=== PATIENT | male | born 1980 | race Caucasian/White ===

== ENCOUNTER 2016-07-17 15:19 | Inpatient (IN) | payer MEDICARE ==
[~2016-07-17] VITALS: Ht 177.8 cm; Wt 99.8 kg
[2016-07-17] MEDS ORDERED: IV NORMAL SALINE 1000ML BAG 1,000 ML IV ONE (16:15)
[2016-07-17] MEDS ORDERED: DIAZEPAM 10 MG/2 ML DISP.SYRIN. IV ONE (16:15)
[2016-07-17] MEDS ORDERED: KETOROLAC 15 MG/ML VIAL. IV ONE (16:15)
[2016-07-17 16:23] LABS: CALCIUM 9.2 mg/dL (8.5-10.1); POTASSIUM 3.9 mmol/L (3.5-5.1)
[2016-07-17 16:26] LABS: BASO % 1 % (0-3); EOS % 2 % (0-3); HEMATOCRIT 40.5 % (39.0-53.0); HEMOGLOBIN 13.5 g/dL (13.0-17.5); LYMPH # 2.1 x10^3/uL (1.0-4.8); LYMPH % 23 % (24-48); MEAN CORPUSCULAR HEMOGLOBIN 29 pg (25-35); MEAN CORPUSCULAR HGB CONC 33 g/dL (31-37); MEAN CORPUSCULAR VOLUME 88 fL (79-100); MONO % 8 % (0-9); NEUT % 66 % (31-73); PLATELET COUNT 180 x10^3/uL (140-400); RED CELL DISTRIBUTION WIDTH 14.3 % (11.5-14.5)
[2016-07-17] MEDS ORDERED: MORPHINE SULFATE 4 MG/ML DISP.SYRIN. IV ONE ×2 (18:00→19:00)
--- NOTE | 2016-07-17 18:35 | PHYS DOC ---
Past Medical History Past Medical History: Anxiety, Other Additional Past Medical Histor: ADHD, bipolar 2 Past Surgical History: Appendectomy, Other Additional Past Surgical Histo: herniax 2 with mesh Alcohol Use: None Drug Use: Marijuana Adult General Chief Complaint Chief Complaint: CHEST WALL PAIN HPI HPI Patient is a 36 year old male who presents after syncopal episode. Patient reports over the past week he has been having some chest pressure. This is worse today. It is accompanied by shortness of breath. He reports today he had 2 episodes today where he became lightheaded and loss consciousness. The second time he fell and injured his L foot. He is also having pain in his lower back. He has not taken anything for symptoms today. No clear inciting or mitigating factors. Review of Systems Review of Systems Constitutional: Syncope x2. Denies fever or chills Eyes: Denies change in visual acuity or eye pain HENT: Denies nasal congestion or sore throat Respiratory: Shortness of breath. Denies cough Cardiovascular: L chest pressure GI: Denies abdominal pain, nausea, vomiting, bloody stools or diarrhea : Denies dysuria or hematuria Musculoskeletal: L foot and low back pain Integument: Denies rash or skin lesions Neurologic: Denies headache, focal weakness or sensory changes Current Medications Current Medications Current Medications Medications (Trade) Dose Ordered Sig/Ryan Start Time Stop Time Status Last Admin Dose Admin Diazepam (Valium) 5 mg 1X ONCE 07/17/16 16:15 07/17/16 16:16 DC 07/17/16 16:09 5 MG Ketorolac Tromethamine 15 mg 15 mg 1X ONCE 07/17/16 16:15 07/17/16 16:16 DC 07/17/16 16:05 15 MG Morphine Sulfate 4 mg 1X ONCE 07/17/16 18:00 07/17/16 18:01 DC 07/17/16 17:48 4 MG Sodium Chloride (Iv Sodium Chloride 0.9% 1000ml Bag) 1,000 ml @ 1,000 mls/hr 1X ONCE 07/17/16 16:15 07/17/16 17:14 DC 07/17/16 16:15 1,000 MLS/HR Allergies Allergies Allergies Coded Allergies Type Severity Reaction Last Updated Verified Penicillins Allergy Intermediate 07/25/15 Yes fluoxetine Allergy Intermediate 07/25/15 Yes promethazine Allergy Intermediate 07/25/15 Yes codeine Adverse Reaction Mild itching 07/25/15 Yes Physical Exam Physical Exam Constitutional: Well developed, well nourished, no acute distress, non-toxic appearance HENT: Normocephalic, atraumatic, bilateral external ears normal Eyes: EOMI, conjunctiva normal, no discharge Neck: Normal range of motion, no stridor; no midline TTP, no stepoff Cardiovascular: Heart rate normal, regular rhythm, no murmur Lungs & Thorax: Coarse breath sounds b/l Abdomen: Bowel sounds normal, soft, non-distended, no TTP Skin: Warm, dry, no erythema, no rash Back: General lumbar tenderness both midline and laterally, no stepoff or deformity noted Extremities: L foot unremarkable compared to R; TTP at base of 5th metatarsal; 2 + DP pulse Neurologic: Alert and oriented X 3, no gross deficits noted Psychological: Anxious Current Patient Data Vital Signs Vital Signs Date Time Temp Pulse Resp B/P Pulse Ox O2 Delivery O2 Flow Rate FiO2 07/17/16 17:48 90 25 108/56 95 07/17/16 15:19 98.8 Room Air 98.8 Lab Values Laboratory Tests Test 07/17/16 15:20 White Blood Count 9.0x10^3/uL (4.0-11.0) Red Blood Count 4.60x10^6/uL (4.30-5.70) Hemoglobin 13.5g/dL (13.0-17.5) Hematocrit 40.5% (39.0-53.0) Mean Corpuscular Volume 88fL (79-100) Mean Corpuscular Hemoglobin 29pg (25-35) Mean Corpuscular Hemoglobin Concent 33g/dL (31-37) Red Cell Distribution Width 14.3% (11.5-14.5) Platelet Count 180x10^3/uL (140-400) Neutrophils (%) (Auto) 66% (31-73) Lymphocytes (%) (Auto) 23% (24-48) L Monocytes (%) (Auto) 8% (0-9) Eosinophils (%) (Auto) 2% (0-3) Basophils (%) (Auto) 1% (0-3) Neutrophils # (Auto) 5.9x10^3uL (1.8-7.7) Lymphocytes # (Auto) 2.1x10^3/uL (1.0-4.8) Monocytes # (Auto) 0.7x10^3/uL (0.0-1.1) Eosinophils # (Auto) 0.1x10^3/uL (0.0-0.7) Basophils # (Auto) 0.0x10^3/uL (0.0-0.2) Sodium Level 143mmol/L (136-145) Potassium Level 3.9mmol/L (3.5-5.1) Chloride Level 106mmol/L (98-107) Carbon Dioxide Level 31mmol/L (21-32) Anion Gap 6 (6-14) Blood Urea Nitrogen 18mg/dL (8-26) Creatinine 1.0mg/dL (0.7-1.3) Estimated GFR (Cockcroft-Gault) 85.0 Glucose Level 134mg/dL (70-99) H Calcium Level 9.2mg/dL (8.5-10.1) Troponin I Quantitative < 0.017ng/mL (0.000-0.055) Laboratory Tests 07/17/16 15:20 Laboratory Tests 07/17/16 15:20 EKG EKG EKG (my read): sinus rhythm, rate 113, LAD, LAFB, nonspecific ST changes Radiology/Procedures Radiology/Procedures CXR (my read): No acute abnormality X-ray L foot: Fracture proximal 5th metatarsal X-ray lumbar spine: No acute abnormality Course & Med Decision Making Course & Med Decision Making Pertinent Labs and Imaging studies reviewed. (See chart for details) Patient is 36-year-old female who presents after reported syncopal episodes. Will check chest x-ray, x-ray lumbar spine, x-ray left foot, EKG, labs to evaluate. Toradol and morphine given for pain. Valium ordered for muscle relaxation as well as anxiety. EKG and imaging results as above. Will splint left foot. Blood work unremarkable. However, given complaint of continued chest discomfort and shortness of breath in addition to reported syncope, we will admit the patient overnight to monitor. Discussed results with patient. Discussed with Dr. Gonzalez, will admit under her care for further evaluation and treatment. Dragon Disclaimer Dragon Disclaimer This electronic medical record was generated, in whole or in part, using a voice recognition dictation system. Departure Departure Impression: Primary Impression: Syncope Additional Impressions: Chest pain SOB (shortness of breath) Metatarsal fracture Disposition: 09 ADMITTED INPATIENT Admitting Physician: Chantel Gonzalez Condition: STABLE Referrals: NO PCP (PCP) Problem Qualifiers JULIOCESAR ZAMORA MD Jul 17, 2016 18:35
[2016-07-17] MEDS ORDERED: ONDANSETRON PF 4 MG/2 ML VIAL. IV PRN ×2 (18:45→19:30)
[2016-07-17] MEDS ORDERED: MORPHINE SULFATE 2 MG/ML DISP.SYRIN. IV PRN (19:15)
--- NOTE | 2016-07-17 19:28 | PDOC1 ---
History and Physical Date of Admission Date of Admission 07/17/16 Identification/Chief Complaint Chief Complaint syncope, chest pain Problems: Source Source: Chart review, Patient History of Present Illness History of Present Illness HPI HPI Patient is a 36 year old male who presents after syncopal episodes 2 times today. Pt is very anxious. He just moved here, no pcp yet, fu with psych for anxiety on xanax. Pt said he had had some chest pain for 1 week. The chest pain comes any times. He was sitting on couch today, stood up, then syncoped falling on the floor for 2 min as per brother, injuried his foot. He woke up fine. Chest pain worse today, worse with deep breath, + tenderness, radiating to left shoulder, + sweating and sob, no N/V. He then walked in the house, 3-4 hours later, syncoped again and hit his lower back. HE has chronic lower back pain. denies alcohol, + marijuana heavy use. Notice pt has multiple left 5th metatarsal fx in the past and this time too. Past Medical History Past Medical History al History: Anxiety, Other Additional Past Medical Histor: ADHD, bipolar 2 Past Surgical History Past Surgical History: Appendectomy, Hernia Repair Family History Family History: No Significant Social History Smoke: <1 pack per day ALCOHOL: social Drugs: Marijuana Current Problem List Problem List Problems Medical Problems: (1) Chest pain Status: Acute (2) Metatarsal fracture Status: Acute (3) SOB (shortness of breath) Status: Acute (4) Syncope Status: Acute Current Medications Current Medications Current Medications Medications (Trade) Dose Ordered Sig/Ryan Start Time Stop Time Status Last Admin Dose Admin Diazepam (Valium) 5 mg 1X ONCE 07/17/16 16:15 07/17/16 16:16 DC 07/17/16 16:09 5 MG Ketorolac Tromethamine 15 mg 15 mg 1X ONCE 07/17/16 16:15 07/17/16 16:16 DC 07/17/16 16:05 15 MG Morphine Sulfate 4 mg 1X ONCE 07/17/16 19:00 07/17/16 19:01 DC 07/17/16 18:52 4 MG Ondansetron HCl (Zofran) 4 mg PRN Q8HRS PRN 07/17/16 18:45 07/18/16 18:44 Oxycodone/ Acetaminophen (Percocet 5/325) 1 tab PRN Q4HRS PRN 07/17/16 19:30 UNV Sodium Chloride (Iv Sodium Chloride 0.9% 1000ml Bag) 1,000 ml @ 1,000 mls/hr 1X ONCE 07/17/16 16:15 07/17/16 17:14 DC 07/17/16 16:15 1,000 MLS/HR Allergies Allergies Allergies Coded Allergies Type Severity Reaction Last Updated Verified Penicillins Allergy Intermediate 07/25/15 Yes fluoxetine Allergy Intermediate 07/25/15 Yes promethazine Allergy Intermediate 07/25/15 Yes codeine Adverse Reaction Mild itching 07/25/15 Yes ROS Review of System CONSTITUTIONAL: No fever or chills EYES: No recent changes SKIN: No rash or itching CARDIOVASCULAR: No chest pain, syncope, palpitations, or edema RESPIRATORY: No SOB or cough GASTROINTESTINAL: No nausea, vomiting or abdominal pain NEUROLOGICAL: No headaches or weakness ENDOCRINE: No cold or heat intolerance GENITOURINARY: No urgency or frequency of urination MUSCULOSKELETAL: No back pain or joint pain LYMPHATICS: No enlarged lymph nodes PSYCHIATRIC: No anxiety or depression Physical Exam Physical Exam GEN.: No apparent distress. Alert and oriented. anxious. HEENT: Head is normocephalic, atraumatic NECK: Supple. LUNGS: decreased bs. HEART: RRR, S1, S2 present. Peripheral pulses intact. + tenderness ABDOMEN: Soft, nontender. Positive bowel sounds. EXTREMITIES: Without any cyanosis. left foot in cast. NEUROLOGIC: Normal speech, normal tone PSYCHIATRIC: Normal affect, normal mood. SKIN: No ulcerations Vitals Vitals Vital Signs Date Time Temp Pulse Resp B/P Pulse Ox O2 Delivery O2 Flow Rate FiO2 07/17/16 18:52 16 96 Room Air 07/17/16 17:48 90 108/56 07/17/16 15:19 98.8 98.8 Labs Labs Laboratory Tests Test 07/17/16 15:20 White Blood Count 9.0x10^3/uL (4.0-11.0) Red Blood Count 4.60x10^6/uL (4.30-5.70) Hemoglobin 13.5g/dL (13.0-17.5) Hematocrit 40.5% (39.0-53.0) Mean Corpuscular Volume 88fL (79-100) Mean Corpuscular Hemoglobin 29pg (25-35) Mean Corpuscular Hemoglobin Concent 33g/dL (31-37) Red Cell Distribution Width 14.3% (11.5-14.5) Platelet Count 180x10^3/uL (140-400) Neutrophils (%) (Auto) 66% (31-73) Lymphocytes (%) (Auto) 23% (24-48) Monocytes (%) (Auto) 8% (0-9) Eosinophils (%) (Auto) 2% (0-3) Basophils (%) (Auto) 1% (0-3) Neutrophils # (Auto) 5.9x10^3uL (1.8-7.7) Lymphocytes # (Auto) 2.1x10^3/uL (1.0-4.8) Monocytes # (Auto) 0.7x10^3/uL (0.0-1.1) Eosinophils # (Auto) 0.1x10^3/uL (0.0-0.7) Basophils # (Auto) 0.0x10^3/uL (0.0-0.2) Sodium Level 143mmol/L (136-145) Potassium Level 3.9mmol/L (3.5-5.1) Chloride Level 106mmol/L (98-107) Carbon Dioxide Level 31mmol/L (21-32) Anion Gap 6 (6-14) Blood Urea Nitrogen 18mg/dL (8-26) Creatinine 1.0mg/dL (0.7-1.3) Estimated GFR (Cockcroft-Gault) 85.0 Glucose Level 134mg/dL (70-99) Calcium Level 9.2mg/dL (8.5-10.1) Troponin I Quantitative < 0.017ng/mL (0.000-0.055) Laboratory Tests Test 07/17/16 15:20 White Blood Count 9.0x10^3/uL (4.0-11.0) Red Blood Count 4.60x10^6/uL (4.30-5.70) Hemoglobin 13.5g/dL (13.0-17.5) Hematocrit 40.5% (39.0-53.0) Mean Corpuscular Volume 88fL (79-100) Mean Corpuscular Hemoglobin 29pg (25-35) Mean Corpuscular Hemoglobin Concent 33g/dL (31-37) Red Cell Distribution Width 14.3% (11.5-14.5) Platelet Count 180x10^3/uL (140-400) Neutrophils (%) (Auto) 66% (31-73) Lymphocytes (%) (Auto) 23% (24-48) Monocytes (%) (Auto) 8% (0-9) Eosinophils (%) (Auto) 2% (0-3) Basophils (%) (Auto) 1% (0-3) Neutrophils # (Auto) 5.9x10^3uL (1.8-7.7) Lymphocytes # (Auto) 2.1x10^3/uL (1.0-4.8) Monocytes # (Auto) 0.7x10^3/uL (0.0-1.1) Eosinophils # (Auto) 0.1x10^3/uL (0.0-0.7) Basophils # (Auto) 0.0x10^3/uL (0.0-0.2) Sodium Level 143mmol/L (136-145) Potassium Level 3.9mmol/L (3.5-5.1) Chloride Level 106mmol/L (98-107) Carbon Dioxide Level 31mmol/L (21-32) Anion Gap 6 (6-14) Blood Urea Nitrogen 18mg/dL (8-26) Creatinine 1.0mg/dL (0.7-1.3) Estimated GFR (Cockcroft-Gault) 85.0 Glucose Level 134mg/dL (70-99) Calcium Level 9.2mg/dL (8.5-10.1) Troponin I Quantitative < 0.017ng/mL (0.000-0.055) VTE Prophylaxis Ordered VTE Prophylaxis Devices: Yes VTE Pharmacological Prophylaxi: Yes Assessment/Plan Assessment/Plan 1 . atypical chest pain, 2/2 muscular pain likely 2. syncope, 2/2 drug use? 3. anxiety 4. bipolar 2? 5. ADHD PLAN: 1. CARD, ORTHO, neuro consult 2. cycle ce 3. pain control ptot drug tox xanax prn dvt ppx HERO AYALA MD Jul 17, 2016 19:28
[2016-07-17 19:30] VITALS: BP 123/72
[2016-07-17] MEDS ORDERED: ALPRAZOLAM 0.25 MG TABLET PO PRN (19:30)
[2016-07-17] MEDS ORDERED: LORAZEPAM 2 MG/ML VIAL IV PRN (19:30)
[2016-07-17] MEDS ORDERED: ACETAMINOPHEN 325 MG TABLET. PO PRN (19:30)
[2016-07-17] MEDS: HYDROMORPHONE 2 MG/ML VIAL. IV PRN (20:12)
[2016-07-17] MEDS: OXYCODONE/APAP 5/325 TABLET. PO PRN (20:46)
[2016-07-17] MEDS ORDERED: ENOXAPARIN 40 MG/0.4 ML DISP.SYRIN. SQ SCH (21:00)
[2016-07-17 23:00] VITALS: BP 150/89
[2016-07-18] MEDS: HYDROMORPHONE 2 MG/ML VIAL. IV PRN ×2 (01:02→06:19)
[2016-07-18] MEDS ORDERED: ALBUTEROL SULFATE 2.5 MG/3 ML NEBU. NEB PRN (01:45)
[2016-07-18 03:31] VITALS: BP 122/78
[2016-07-18] MEDS: OXYCODONE/APAP 5/325 TABLET. PO PRN (05:17)
--- NOTE | 2016-07-18 06:33 | ACF ---
Admission Forms Criteria SYNCOPE Clinical Indications for Admission to Inpatient Care ( Place 'X' for any and all applicable criteria): Admission is indicated for syncope and ANY ONE of the following (1)(2)(3)(4)(5) (6)(7) : [X]I. Inpatient admission required rather than observation care (Also use Syncope: Observation Care Criteria as appropriate) because of ANY ONE of the following: [ ]a) Hemodynamic instability that is severe or persistent [ ]b) Cardiac arrhythmias of immediate concern identified or strongly suspected (eg, needs electrophysiologic study) [ ]c) Acute coronary syndrome identified (Also use Myocardial Infarction or Angina Criteria form ) [ ]d) Structural cardiac disorder (eg, aortic stenosis) suspected as cause that requires immediate correction [ ]e) Respiratory symptoms (eg, dyspnea, tachypnea) that are severe or persistent [ ]f) Neurologic signs or symptoms that are severe or persistent ( eg, stroke, seizures, altered mental status) [ ]g) Severe electrolyte abnormalities requiring inpatient care [ ]h) Supplemental oxygen or respiratory treatment for over 24 hrs that are performable only in acute inpatient setting [ ]i) IV fluid to replace significant ongoing (eg, for over 24 hrs ) losses (>3 L/m2 per day) [ ]j) Continuous intravenous infusion of anticoagulation, platelet inhibitor, vasoactive, or antiarrhythmic medication(15)(16) [ ]k) Pulmonary artery catheter monitoring [ ]l) Temporary pacemaker placement(17) [ ]m) Emergent cardioversion(18) [X]n) Other conditions, treatment or monitoring requiring inpatient admission [ ]II. Suspicion of imminently dangerous cause (eg, rare causes like pericardial tamponade, pulmonary embolism) [ ]III. Syncope causing severe injury requiring hospitalization Extended stay beyond goal length of stay may be needed for(28) [ ]a) Dangerous arrhythmia(15)(23)(27)(29) [ ]b) Myocardial ischemia [ ]c) Seizure disorder [ ]d) Syncope-related injuries The original [employer] content created by [employer] has been revised. The portions of the content which have been revised are identified through the use of italic text or in bold, and [employer] has neither reviewed nor approved the modified material. All other unmodified content is copyright [employer]. Please see references footnoted in the original [facility] edition 2016 Admission Criteria Met?: Yes WILVER MANCERA Jul 18, 2016 06:32
[2016-07-18 06:45] LABS: BASO # 0.1 x10^3/uL (0.0-0.2); BASO % 1 % (0-3); EOS % 2 % (0-3); HEMATOCRIT 40.2 % (39.0-53.0); HEMOGLOBIN 13.3 g/dL (13.0-17.5); LYMPH % 33 % (24-48); MEAN CORPUSCULAR HEMOGLOBIN 29 pg (25-35); MEAN CORPUSCULAR HGB CONC 33 g/dL (31-37); MEAN CORPUSCULAR VOLUME 88 fL (79-100); MONO % 10 % (0-9); NEUT % 55 % (31-73); PLATELET COUNT 190 x10^3/uL (140-400); RED BLOOD COUNT 4.56 x10^6/uL (4.30-5.70); RED CELL DISTRIBUTION WIDTH 14.7 % (11.5-14.5); WHITE BLOOD COUNT 9.1 x10^3/uL (4.0-11.0)
[2016-07-18 07:08] LABS: CALCIUM 8.8 mg/dL (8.5-10.1); CREATININE 1.2 mg/dL (0.7-1.3); GFR 68.9; POTASSIUM 4.1 mmol/L (3.5-5.1)
[2016-07-18 07:25] VITALS: BP 143/69
[2016-07-18] MEDS ORDERED: CARISOPRODOL 350 MG TABLET PO PRN (09:30)
[2016-07-18] MEDS ORDERED: OXYCODONE/APAP 10/325 TABLET. PO PRN (09:30)
[2016-07-18 10:20] VITALS: BP 148/73
--- NOTE | 2016-07-18 11:03 | RAD ---
EXAM: Lumbar spine 2 or 3 views. HISTORY: Syncope, low back pain COMPARISON: 08/08/2009. FINDINGS: There is a minimal levocurvature. Vertebral body heights are maintained, and no fractures are identified. Intervertebral disc heights are maintained. Stool throughout the colon is consistent with constipation. There are postsurgical changes in the left upper quadrant. IMPRESSION: 1. No fracture or malalignment. 2. Correlate for constipation.
--- NOTE | 2016-07-18 11:05 | RAD ---
EXAM: Left foot 3 views. HISTORY: Fall with left foot injury. COMPARISON: 08/21/2015. FINDINGS: There are fracture fragments at the base of the fifth metatarsal. There is associated periosteal reaction, consistent with a subacute or acute on subacute injury. There also appears to be some ossification at the insertion of the peroneal tendons. There is mild hallux valgus with mild first metatarsophalangeal osteoarthritis. IMPRESSION: 1. Avulsion fractures at the base of the fifth metatarsal may be acute on subacute. Some fragments remain a completely unified. 2. Mild hallux valgus with mild first metatarsophalangeal osteoarthritis.
--- NOTE | 2016-07-18 11:08 | RAD ---
EXAM: Chest 2 views. HISTORY: Chest pain, fall, syncope. COMPARISON: None. FINDINGS: Frontal and lateral views of the chest are obtained. There are no confluent infiltrates. There is mild left basilar atelectasis. There is no pneumothorax or pleural effusion. The heart is not enlarged. IMPRESSION: 1. No confluent infiltrates.
[2016-07-18 11:22] LABS: BARBITURATES NEG (NEG); BENZODIAZEPINES POS (NEG); CANNABINOIDS POS (NEG); COCAINE NEG (NEG); METHADONE NEG (NEG); OPIATES POS (NEG); PHENCYCLIDINE NEG (NEG)
[2016-07-18 11:23] LABS: ETHANOL, URINE NEG (NEG)
--- NOTE | 2016-07-18 12:39 | PDOC3 ---
Discharge Summary [facility] Date of Admission: Jul 17, 2016 Discharge Date: Jul 18, 2016 Admitting Diagnosis 1 . atypical chest pain, 2/2 muscular pain likely 2. syncope, 2/2 drug use likely,with marijuana, benza which may cause toxic encephalopathy 3. anxiety 4. bipolar 2? 5. ADHD 6. left 5th metatarsal fx, acute /subacute, had it before too 7. COPD with smoking Problems: Final Diagnosis Problems Medical Problems: (1) Chest pain Status: Acute (2) Metatarsal fracture Status: Acute (3) SOB (shortness of breath) Status: Acute (4) Syncope Status: Acute CONSULTS card neuro ortho Brief Hospital Course Patient is a 36 year old male who presents after syncopal episodes 2 times today. Pt is very anxious. He just moved here, no pcp yet, fu with psych for anxiety on xanax. Pt said he had had some chest pain for 1 week. The chest pain comes any times. He was sitting on couch today, stood up, then syncoped falling on the floor for 2 min as per brother, injuried his foot. He woke up fine. Chest pain worse today, worse with deep breath, + tenderness, radiating to left shoulder, + sweating and sob, no N/V. He then walked in the house, 3-4 hours later, syncoped again and hit his lower back. HE has chronic lower back pain. denies alcohol, + marijuana heavy use. Notice pt has multiple left 5th metatarsal fx in the past and this time too. Pt still anxious, all CE neg. [facility] and i refused him since he can only go with some staff ( he might wants to smoke as per nurses , since he sneaked out many times last night). dr. Lubin told me no foot sx needed. waiting for card and neuro consult, if no objection, dc home today dc time 35min. HEENT: Head is normocephalic, atraumatic NECK: Supple. LUNGS: decreased bs. HEART: RRR, S1, S2 present. Peripheral pulses intact. + tenderness ABDOMEN: Soft, nontender. Positive bowel sounds. EXTREMITIES: Without any cyanosis. left foot in cast. NEUROLOGIC: Normal speech, normal tone PSYCHIATRIC: Normal affect, normal mood. SKIN: No ulcerations Patient History: Problems: Disposition home CONDITION AT DISCHARGE: Improved Diet regular No Active Prescriptions or Reported Meds Follow Up pcp in 2 weeks HERO AYALA MD Jul 18, 2016 12:39
--- NOTE | 2016-07-18 12:47 | EKG ---
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
--- NOTE | 2016-07-18 12:47 | PDOC2 ---
NEUROLOGY CONSULT Date of Admission Date of Admission DATE: 07/18/16 TIME: 12:42 Reason for Consult Reason for Consult: Syncope Referring Physician Referring Physician: Dr. Gonzalez Source Source: Chart review, Patient History of Present Illness History of Present Illness The patient is a 36-year-old right-handed male who had syncope 2 yesterday. He stood up and felt lightheaded and the next thing he knows he was on the floor. His brother told him he was out for no more than a minute. Then he got up again a few minutes later and fainted again. He broke his left fifth metatarsal. There was no convulsive activity, tongue biting, incontinence, or postictal confusion. He had a similar episode several years ago after one of his many bouts of chronic insomnia. He says that he can go up to a month without sleep. He also has chronic back pain due to lumbar disc disease, but this has not been thought to be surgically amenable. He recently moved in with his mother. He is under quite a bit of stress from this move. He denies street drug use, but told emergency department that he used marijuana. Opiates, cannabinoids, and benzodiazepines are in his urine drug screen. He denies any history of stroke or significant head injury. He is on disability. Past Medical History Cardiovascular: Syncope Pulmonary: Asthma Psych: Anxiety, Bipolar, Other (ADHD) Musculoskeletal: low back pain, Osteoarthritis Past Surgical History Past Surgical History: No pertinent history Family History Family History: No pertinent hx (no family history of seizures) Social History Social History Single, disabled, denies alcohol, tobacco, or street drugs. Current Medications Current Medications Current Medications Ketorolac Tromethamine 15 mg 15 mg 1X ONCE IV Last administered on 07/17/16 16:05; Start 07/17/16 at 16:15; Stop 07/17/16 at 16:16; Status DC Sodium Chloride (Iv Sodium Chloride 0.9% 1000ml Bag) 1,000 ml @ 1,000 mls/hr 1X ONCE IV Last administered on 07/17/16 16:15; Start 07/17/16 at 16:15; Stop 07/17/16 at 17:14; Status DC Diazepam (Valium) 5 mg 1X ONCE IV Last administered on 07/17/16 16:09; Start 07/17/16 at 16:15; Stop 07/17/16 at 16:16; Status DC Morphine Sulfate 4 mg 1X ONCE IV Last administered on 07/17/16 17:48; Start 07/17/16 at 18:00; Stop 07/17/16 at 18:01; Status DC Ondansetron HCl (Zofran) 4 mg PRN Q8HRS PRN IV NAUSEA/VOMITING; Start 07/17/16 at 18:45; Stop 07/17/16 at 19:21; Status DC Morphine Sulfate 2 mg PRN Q2HR PRN IV PAIN; Start 07/17/16 at 19:15; Stop 07/18 at 19:14 Morphine Sulfate 4 mg 1X ONCE IV Last administered on 07/17/16 18:52; Start 07/17/16 at 19:00; Stop 07/17/16 at 19:01; Status DC Oxycodone/ Acetaminophen (Percocet 5/325) 1 tab PRN Q4HRS PRN PO PAIN Last administered on 07/18/16 05:17; Start 07/17/16 at 19:30; Stop 07/18/16 at 09:23 ; Status DC Acetaminophen (Tylenol) 650 mg PRN Q6HRS PRN PO MILD PAIN / TEMP; Start at 19:30 Ondansetron HCl (Zofran) 4 mg PRN Q6HRS PRN IV NAUSEA/VOMITING; Start 07/17/16 at 19:30 Hydromorphone HCl (Dilaudid) 1 mg PRN Q4HRS PRN IV PAIN Last administered on 06:19; Start 07/17/16 at 19:30 Enoxaparin Sodium (Lovenox 40mg Syringe) 40 mg Q24H SQ Last administered on 20:46; Start 07/17/16 at 21:00 Alprazolam (Xanax) 0.25 mg PRN Q8HRS PRN PO ANXIETY / AGITATION Last administered on 07/18/16 11:11; Start 07/17/16 at 19:30 Lorazepam (Ativan) 1 mg PRN Q4HRS PRN IV ANXIETY / AGITATION; Start 07/17/16 at 19:30 Albuterol Sulfate (Ventolin Neb Soln) 2.5 mg PRN QID PRN NEB SHORTNESS OF BREATH Last administered on 07/18/16 01:52; Start 07/18/16 at 01:45 Oxycodone/ Acetaminophen (Percocet 10/325) 1 tab PRN Q4HRS PRN PO PAIN Last administered on 07/18/16 11:07; Start 07/18/16 at 09:30 Carisoprodol (Soma) 350 mg TID PRN PRN PO MUSCLE SPASMS Last administered on 11:09; Start 07/18/16 at 09:30 Active Scripts Active No Active Prescriptions or Reported Medications Allergies Allergies: Coded Allergies: Penicillins (Verified Allergy, Intermediate, 07/25/15) fluoxetine (Verified Allergy, Intermediate, 07/25/15) promethazine (Verified Allergy, Intermediate, 07/25/15) codeine (Verified Adverse Reaction, Mild, itching, 07/25/15) ROS Review of System Patient denies fevers, chills, weight loss, dyspnea, angina, abdominal pain, change in bowels, or dysuria. 14 point review of systems is negative. Physical Exam Physical Examination PHYSICAL EXAMINATION: Vital signs: see above. General appearance is normal and in no acute distress. HEENT: Normocephalic and nontraumatic. Eyes, nose, ears, and throat are unremarkable. Neck is supple. No lymphadenopathy. No bruits are heard over the carotid artery. No crepitus. NEUROLOGICAL EXAMINATION: Mental Status Examination: Alert. Oriented to time, place, and person. Answers questions and follows commends. Pupils are equal round and reactive to light and accommodation. Extraocular movements are intact. Visual field exam shows no defect on the direct confrontation. No motor or sensory deficits on the facial exam. Uvula in the midline and the soft palate elevated symmetrically. No deviation of the tongue to any direction. Gross hearing is normal. Shoulder shrug normal. Muscle tone is normal. Muscle strength is 5. Deep tendon reflexes are 2+ all around. Plantar reflex is with flexion response bilaterally. [id number] test performance is accurate. Alternative movements are accurate. Gait not tested. Sensory exam shows no deficits. No cerebellar signs are elicited. Vitals VITALS Vital Signs Date Time Temp Pulse Resp B/P Pulse Ox O2 Delivery O2 Flow Rate FiO2 07/18/16 12:07 95 Room Air 07/18/16 10:20 97.9 92 20 148/73 97.9 Labs Labs Laboratory Tests Test 07/17/16 15:20 07/18/16 01:00 07/18/16 05:55 07/18/16 10:55 White Blood Count 9.0x10^3/uL (4.0-11.0) 9.1x10^3/uL (4.0-11.0) Red Blood Count 4.60x10^6/uL (4.30-5.70) 4.56x10^6/uL (4.30-5.70) Hemoglobin 13.5g/dL (13.0-17.5) 13.3g/dL (13.0-17.5) Hematocrit 40.5% (39.0-53.0) 40.2% (39.0-53.0) Mean Corpuscular Volume 88fL (79-100) 88fL (79-100) Mean Corpuscular Hemoglobin 29pg (25-35) 29pg (25-35) Mean Corpuscular Hemoglobin Concent 33g/dL (31-37) 33g/dL (31-37) Red Cell Distribution Width 14.3% (11.5-14.5) 14.7% (11.5-14.5) Platelet Count 180x10^3/uL (140-400) 190x10^3/uL (140-400) Neutrophils (%) (Auto) 66% (31-73) 55% (31-73) Lymphocytes (%) (Auto) 23% (24-48) 33% (24-48) Monocytes (%) (Auto) 8% (0-9) 10% (0-9) Eosinophils (%) (Auto) 2% (0-3) 2% (0-3) Basophils (%) (Auto) 1% (0-3) 1% (0-3) Neutrophils # (Auto) 5.9x10^3uL (1.8-7.7) 5.0x10^3uL (1.8-7.7) Lymphocytes # (Auto) 2.1x10^3/uL (1.0-4.8) 3.0x10^3/uL (1.0-4.8) Monocytes # (Auto) 0.7x10^3/uL (0.0-1.1) 0.9x10^3/uL (0.0-1.1) Eosinophils # (Auto) 0.1x10^3/uL (0.0-0.7) 0.2x10^3/uL (0.0-0.7) Basophils # (Auto) 0.0x10^3/uL (0.0-0.2) 0.1x10^3/uL (0.0-0.2) Sodium Level 143mmol/L (136-145) 145mmol/L (136-145) Potassium Level 3.9mmol/L (3.5-5.1) 4.1mmol/L (3.5-5.1) Chloride Level 106mmol/L (98-107) 108mmol/L (98-107) Carbon Dioxide Level 31mmol/L (21-32) 26mmol/L (21-32) Anion Gap 6 (6-14) 11 (6-14) Blood Urea Nitrogen 18mg/dL (8-26) 21mg/dL (8-26) Creatinine 1.0mg/dL (0.7-1.3) 1.2mg/dL (0.7-1.3) Estimated GFR (Cockcroft-Gault) 85.0 68.9 Glucose Level 134mg/dL (70-99) 72mg/dL (70-99) Calcium Level 9.2mg/dL (8.5-10.1) 8.8mg/dL (8.5-10.1) Troponin I Quantitative < 0.017ng/mL (0.000-0.055) < 0.017ng/mL (0.000-0.055) < 0.017ng/mL (0.000-0.055) Urine Opiates Screen Pos (NEG) Urine Methadone Screen Neg (NEG) Urine Barbiturates Neg (NEG) Urine Phencyclidine Screen Neg (NEG) Urine Amphetamine/Methamphetamine Neg (NEG) Urine Benzodiazepines Screen Pos (NEG) Urine Cocaine Screen Neg (NEG) Urine Cannabinoids Screen Pos (NEG) Urine Ethyl Alcohol Neg (NEG) Laboratory Tests Test 07/17/16 15:20 07/18/16 01:00 07/18/16 05:55 3/12/17 10:55 White Blood Count 9.0x10^3/uL (4.0-11.0) 9.1x10^3/uL (4.0-11.0) Red Blood Count 4.60x10^6/uL (4.30-5.70) 4.56x10^6/uL (4.30-5.70) Hemoglobin 13.5g/dL (13.0-17.5) 13.3g/dL (13.0-17.5) Hematocrit 40.5% (39.0-53.0) 40.2% (39.0-53.0) Mean Corpuscular Volume 88fL (79-100) 88fL (79-100) Mean Corpuscular Hemoglobin 29pg (25-35) 29pg (25-35) Mean Corpuscular Hemoglobin Concent 33g/dL (31-37) 33g/dL (31-37) Red Cell Distribution Width 14.3% (11.5-14.5) 14.7% (11.5-14.5) Platelet Count 180x10^3/uL (140-400) 190x10^3/uL (140-400) Neutrophils (%) (Auto) 66% (31-73) 55% (31-73) Lymphocytes (%) (Auto) 23% (24-48) 33% (24-48) Monocytes (%) (Auto) 8% (0-9) 10% (0-9) Eosinophils (%) (Auto) 2% (0-3) 2% (0-3) Basophils (%) (Auto) 1% (0-3) 1% (0-3) Neutrophils # (Auto) 5.9x10^3uL (1.8-7.7) 5.0x10^3uL (1.8-7.7) Lymphocytes # (Auto) 2.1x10^3/uL (1.0-4.8) 3.0x10^3/uL (1.0-4.8) Monocytes # (Auto) 0.7x10^3/uL (0.0-1.1) 0.9x10^3/uL (0.0-1.1) Eosinophils # (Auto) 0.1x10^3/uL (0.0-0.7) 0.2x10^3/uL (0.0-0.7) Basophils # (Auto) 0.0x10^3/uL (0.0-0.2) 0.1x10^3/uL (0.0-0.2) Sodium Level 143mmol/L (136-145) 145mmol/L (136-145) Potassium Level 3.9mmol/L (3.5-5.1) 4.1mmol/L (3.5-5.1) Chloride Level 106mmol/L (98-107) 108mmol/L (98-107) Carbon Dioxide Level 31mmol/L (21-32) 26mmol/L (21-32) Anion Gap 6 (6-14) 11 (6-14) Blood Urea Nitrogen 18mg/dL (8-26) 21mg/dL (8-26) Creatinine 1.0mg/dL (0.7-1.3) 1.2mg/dL (0.7-1.3) Estimated GFR (Cockcroft-Gault) 85.0 68.9 Glucose Level 134mg/dL (70-99) 72mg/dL (70-99) Calcium Level 9.2mg/dL (8.5-10.1) 8.8mg/dL (8.5-10.1) Troponin I Quantitative < 0.017ng/mL (0.000-0.055) < 0.017ng/mL (0.000-0.055) < 0.017ng/mL (0.000-0.055) Urine Opiates Screen Pos (NEG) Urine Methadone Screen Neg (NEG) Urine Barbiturates Neg (NEG) Urine Phencyclidine Screen Neg (NEG) Urine Amphetamine/Methamphetamine Neg (NEG) Urine Benzodiazepines Screen Pos (NEG) Urine Cocaine Screen Neg (NEG) Urine Cannabinoids Screen Pos (NEG) Urine Ethyl Alcohol Neg (NEG) Assessment/Plan Assessment/Plan Impression: Syncope, he has been worked up for this in the past, he feels fine now, but he did break his foot. No sign at this was due to cerebrovascular disease or epilepsy. Recommendations: No imaging studies of the brain were done in the emergency department but at this point his exam is normal and I think we can hold off on any imaging studies. EEG would not affect management Workup per cardiology Okay for discharge Follow-up with neurology as needed. Thank you for letting me help with the patient's care. LAURA MOTT MD Jul 18, 2016 12:47
--- NOTE | 2016-07-18 23:45 | CONS ---
DATE OF CONSULTATION: 07/18/2016 REQUESTING CONSULTATION: Dr. Gonzalez. REASON FOR CONSULTATION: Left foot fracture. HISTORY OF PRESENT ILLNESS: The patient is a 36-year-old male who was admitted for syncopal episodes. He describes having a passing out episode, fell and has some back pain as well as some acute onset left foot pain. He said the initial injury probably happened a year or so ago when he was dancing, he subsequently reinjured it on a couple of occasions, most recently yesterday. He reported some on and off chest pain over the past week and injured himself overall getting up off the couch and complains of some ongoing chest pain, worse with deep breathing. PAST MEDICAL HISTORY: Bipolar disorder, ADHD and anxiety. PAST SURGICAL HISTORY: Appendectomy and hernia repair. FAMILY HISTORY: He denies any significant family history. SOCIAL HISTORY: He is less than 1 pack per day smoker, social drinker of alcohol and has some heavy marijuana use. He lives with his brother who witnessed the fall episode. 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 No nausea, vomiting, abdominal pain, focal weakness, numbness or tingling in the extremities. He does have some chronic lower back pain, mildly exacerbated by the fall. No neck pain. No headache, visual changes and no evidence of any neurologic deficits. No fever or chills. MEDICATIONS: List is reviewed. ALLERGIES: INCLUDE CODEINE, FLUOXETINE, PENICILLIN AND PROMETHAZINE. PHYSICAL EXAMINATION: VITAL SIGNS: Per his admission sheet. EXTREMITIES: Examination of the left foot reveals tenderness over the base of the fifth metatarsal. He has full range of motion of his ankle, minor tenderness over the anterior talofibular ligament. No gross instability. He was previously splinted. He has normal hindfoot, midfoot and forefoot motion. Normal examination of the contralateral right foot and ankle. Bilateral hips and knees with normal alignment, stability and overall intact motor function, distal pulses, sensation, reflexes, skin in both lower extremities throughout. Likewise, he has normal shoulder, elbow and wrist motion bilaterally with again intact motor function, distal pulses, sensation in both upper extremities throughout. IMAGING: X-rays show irregularity at the base of the left fifth metatarsal, which shows evidence of probable previous fractures and a couple of different calcific densities at the base, probably from chronic injury. The injury is confined to the very insertion of the peroneus brevis at the fifth and at the base of the bone. No evidence of proximal shaft fracture or other bony abnormality present. IMPRESSION: 1. Fifth metatarsal base avulsion fracture, likely chronic. 2. Syncopal episodes. 3. Resolved worked up chest pain. TREATMENT PLAN: I went over with him treatment options. We ____ give him the most support, put him in a Cam walker boot. He would prefer not to do that due to the way the boot throws him off on his gait and give some back pain. We talked about the possibility of an ASO brace that he could wear inside the shoe that would help his ankle, but may put more pressure on the symptomatic site, although the main issue to allow it to heal is really walking more flat footed not pushing off his toes and certainly not turning the ankle over. He would like to proceed with some more minimal treatment of the ASO brace. All his questions were answered. I do not anticipate further followup necessary regarding his condition, but will consult [facility] for fitting of the ASO brace today. CHRISTOPHER OAKLEY MD DR: LC/sudhakar JOB#: [id number] / [id number]
== END 2016-07-18 17:54 | disposition home or self-care (01) | DRG 917 ==
LOC: EEVIPCON 15:19 → ER 15:19 → 5 NORTH 18:29
PROVIDERS: ADMIT Internal Medicine; ATTEND Internal Medicine
DX: T42.4X1A Poisoning by benzodiazepines, accidental (unintentional), initial encounter (principal); G92 Toxic encephalopathy; F31.81 Bipolar II disorder; R55 Syncope and collapse; R07.89 Other chest pain; F41.9 Anxiety disorder, unspecified; F17.210 Nicotine dependence, cigarettes, uncomplicated; F12.90 Cannabis use, unspecified, uncomplicated; F90.9 Attention-deficit hyperactivity disorder, unspecified type; G40.909 Epilepsy, unspecified, not intractable, without status epilepticus; G89.29 Other chronic pain; T40.7X5A Adverse effect of cannabis (derivatives), initial encounter; M19.90 Unspecified osteoarthritis, unspecified site; J44.9 Chronic obstructive pulmonary disease, unspecified; J45.909 Unspecified asthma, uncomplicated; F51.04 Psychophysiologic insomnia; M54.5 Low back pain; S92.351A Displaced fracture of fifth metatarsal bone, right foot, initial encounter for closed fracture; W19.XXXA Unspecified fall, initial encounter; Z90.49 Acquired absence of other specified parts of digestive tract; Y93.89 Activity, other specified; Z88.5 Allergy status to narcotic agent; Z88.0 Allergy status to penicillin; Z88.8 Allergy status to other drugs, medicaments and biological substances; Y92.89 Other specified places as the place of occurrence of the external cause; Y99.8 Other external cause status
CPT/HCPCS: 29515; 36415; 71020; 72100; 73630; 80048; 82306; 84484; 85027; 87641; 93005; 94640; 96361; 96374; 96375; 96376; 99406; G0481; J1170; J1650; J1885; J2270; J3360; J7030; 99285-25

== ENCOUNTER 2016-09-14 08:13 | Emergency (ER) | payer MEDICARE ==
[~2016-09-14] VITALS: Ht 172.7 cm; Wt 108.9 kg
[2016-09-14] MEDS ORDERED: IV NORMAL SALINE 1000ML BAG 1,000 ML IV SCH (08:30)
--- NOTE | 2016-09-14 08:36 | PHYS DOC ---
Past Medical History Past Medical History: Anxiety, Asthma, Other Additional Past Medical Histor: ADHD, mood disorder Past Surgical History: Appendectomy, Other Additional Past Surgical Histo: herniax 2 with mesh Smoking: Cigarettes, Greater than 1 pack/day Additional Information: 1 ppd Alcohol Use: Rarely Drug Use: Marijuana Adult General Chief Complaint Chief Complaint: FEVER HPI HPI This is a pleasant 36-year-old male with history of asthma and anxiety presents with a four-day history of productive cough and increased wheezing shortness of breath associated with what he believes to be a virus or bacterial infection. Since objectors some fevers and chills her last 3-4 days he has been continuing to smoke despite symptoms. Symptoms are worse when he exerts himself he denies any true chest pain but has a mild sore throat hurts with swallowing and coughing. He's had sick contacts at home with similar symptoms denies any travel denies any recent antibiotics he presently does not work. Patient said this had no change in voice has been taking [id number] medications like DayQuil and NyQuil to treat his symptoms with minimal improvement. Review of Systems Review of Systems Constitutional: Chills and fevers Eyes: Denies change in visual acuity, redness, or eye pain [] HENT: Congestion with sore throat Respiratory: Cough with wheezing and mild shortness of breath with exertion Cardiovascular: No additional information not addressed in HPI [] GI: Denies abdominal pain, nausea, vomiting, bloody stools or diarrhea [] : Denies dysuria or hematuria [] Musculoskeletal: Denies back pain or joint pain [] Integument: Denies rash or skin lesions [] Neurologic: Denies headache, focal weakness or sensory changes [] Endocrine: Denies polyuria or polydipsia [] Current Medications Current Medications Current Medications Medications (Trade) Dose Ordered Sig/Ryan Start Time Stop Time Status Last Admin Dose Admin Albuterol/ Ipratropium (Duoneb) 3 ml 1X ONCE 09/14/16 08:45 09/14/16 08:46 DC 09/14/16 09:01 3 ML Hydromorphone HCl (Dilaudid) 0.5 mg 1X ONCE 09/14/16 08:45 09/14/16 08:46 DC 09/14/16 09:09 0.5 MG Lorazepam (Ativan) 1 mg 1X ONCE 09/14/16 08:45 5/9/17 08:46 DC 09/14/16 09:11 1 MG Methylprednisolone Sodium Succinate (Solu-Medrol 125mg Vial) 125 mg 1X ONCE 09/14/16 08:45 09/14/16 08:46 DC 09/14/16 09:07 125 MG Sodium Chloride 1,000 ml @ 1,000 mls/hr Q1H 09/14/16 08:30 09/14/16 09:29 DC 09/14/16 09:05 1,000 MLS/HR Sodium Chloride (Normal Saline Flush) 10 ml 1X ONCE 09/14/16 08:45 09/14/16 08:46 DC 09/14/16 09:08 10 ML Allergies Allergies Allergies Coded Allergies Type Severity Reaction Last Updated Verified Penicillins Allergy Intermediate 07/25/15 Yes fluoxetine Allergy Intermediate 07/25/15 Yes promethazine Allergy Intermediate 07/25/15 Yes codeine Adverse Reaction Mild itching 07/25/15 Yes Physical Exam Physical Exam Constitutional: Well developed, well nourished, patient obviously uncomfortable to Not hypoxic no obvious signs of air hunger patient speaking in 12-15 word sentences. He seems mildly anxious HENT: Normocephalic, atraumatic, bilateral external ears normal, erythema of the oropharynx noted without exudates or tonsillar hypertrophy nasal congestion is noted TMs are clear. Eyes: PERRLA, EOMI, conjunctiva normal, no discharge. [] Neck: Normal range of motion, no tenderness, supple, no stridor. [] Cardiovascular:Heart rate regular rhythm, no murmur [] Lungs & Thorax: Bilateral wheezes noted in all lung reyes with no retractions or accessory muscle use no rhonchi or crackles] Abdomen: Bowel sounds normal, soft, no tenderness, no masses, no pulsatile masses. [] Skin: Warm, dry, no erythema, no rash. [] Back: No tenderness, no CVA tenderness. [] Extremities: No tenderness, no cyanosis, no clubbing, ROM intact, no edema. [] Neurologic: Alert and oriented X 3, normal motor function, normal sensory function, no focal deficits noted. [] Psychologic: He is uncomfortable and anxious. But able to be consoled and will speak in 15 word sentences Current Patient Data Vital Signs Vital Signs Date Time Temp Pulse Resp B/P (MAP) Pulse Ox O2 Delivery O2 Flow Rate FiO2 09/14/16 09:30 94 23 134/86 (102) 92 Room Air 09/14/16 08:25 98.7 98.7 Lab Values Laboratory Tests Test 09/14/16 08:50 09/14/16 09:15 White Blood Count 15.7 x10^3/uL (4.0-11.0) H Red Blood Count 4.73 x10^6/uL (4.30-5.70) Hemoglobin 13.9 g/dL (13.0-17.5) Hematocrit 40.5 % (39.0-53.0) Mean Corpuscular Volume 86 fL (79-100) Mean Corpuscular Hemoglobin 30 pg (25-35) Mean Corpuscular Hemoglobin Concent 34 g/dL (31-37) Red Cell Distribution Width 13.3 % (11.5-14.5) Platelet Count 209 x10^3/uL (140-400) Neutrophils (%) (Auto) 81 % (31-73) H Lymphocytes (%) (Auto) 10 % (24-48) L Monocytes (%) (Auto) 8 % (0-9) Eosinophils (%) (Auto) 1 % (0-3) Basophils (%) (Auto) 0 % (0-3) Neutrophils # (Auto) 12.8 x10^3uL (1.8-7.7) H Lymphocytes # (Auto) 1.5 x10^3/uL (1.0-4.8) Monocytes # (Auto) 1.3 x10^3/uL (0.0-1.1) H Eosinophils # (Auto) 0.1 x10^3/uL (0.0-0.7) Basophils # (Auto) 0.0 x10^3/uL (0.0-0.2) Sodium Level 142 mmol/L (136-145) Potassium Level 3.7 mmol/L (3.5-5.1) Chloride Level 105 mmol/L (98-107) Carbon Dioxide Level 28 mmol/L (21-32) Anion Gap 9 (6-14) Blood Urea Nitrogen 9 mg/dL (8-26) Creatinine 0.9 mg/dL (0.7-1.3) Estimated GFR (Cockcroft-Gault) 96.0 BUN/Creatinine Ratio 10 (6-20) Glucose Level 104 mg/dL (70-99) H Calcium Level 8.5 mg/dL (8.5-10.1) Total Bilirubin 0.5 mg/dL (0.2-1.0) Aspartate Amino Transferase (AST) 10 U/L (15-37) L Alanine Aminotransferase (ALT) 20 U/L (16-63) Alkaline Phosphatase 95 U/L (46-116) Total Protein 7.5 g/dL (6.4-8.2) Albumin 3.5 g/dL (3.4-5.0) Albumin/Globulin Ratio 0.9 (1.0-1.7) L Influenza Type A Antigen Negative (NEGATIVE) Influenza Type B Antigen Negative (NEGATIVE) Laboratory Tests 09/14/16 08:50 Laboratory Tests 09/14/16 08:50 EKG EKG [] Radiology/Procedures Radiology/Procedures [] Signed PATIENT: KAILEE KENDALL ACCOUNT: [id number] : 1980 LOCATION: ER AGE: 36 SEX: M EXAM STATUS: PRE ER ORD. PHYSICIAN: RADHA MCINTOSH MD REASON: cough PROCEDURE: CHEST PA & LATERAL Indication: Cough and fever. Time of exam 0841 hours. Correlation is made with prior exam from 07/17/2016. FINDINGS: The heart size is normal. The lungs are clear. No pleural effusion or pneumothorax is identified. The pulmonary vascularity is normal. IMPRESSION: No acute abnormality detected. DICTATED and SIGNED BY: GÉNESIS LESTER MD DATE: 09/14/1667 CC: RADHA MCINTOSH MD; NO PCP ~ Course & Med Decision Making Course & Med Decision Making Pertinent Labs and Imaging studies reviewed. (See chart for details) negative strep, negative influenza, chest x-ray reviewed by me negative for infiltrates. This patient a pleasant 36-year-old male with history of asthma who comes in with a productive cough wheezing subjective fevers and chills sore throat and chest discomfort with cough. Over the course of his evaluation patient is noted to be wheezing on initial arrival was given 3 duo nebs and steroids as well which improved his symptoms dramatically. He began to ask for narcotics and pain medications, mainly upon arrival for his sore throat has commits narcotics and the only way for him to treat his pain. He did receive a small dose of Dilaudid to help with his pain is coughing has now subsided. He still asking for more pain medications. I am concerned with this renewed interest in pain medications that there may be an issue here with opiate withdrawal syndrome given his motor agitation. I discussed with patient ways to treat chest wall pain and cough without narcotics and will encourage him to quit smoking to reduce his frequency of coughing. Patient did ask several times more for cough and medication with narcotics in it as well as a shot of narcotics before he left I explained to him my concern having narcotics in his system multiple doses can cause respiratory depression. He has accepted my patient and my concerns and use except on plan for disposition. Impression: Asthma exacerbation, bronchitis secondary smoking. Drug-seeking behavior, leukocytosis secondary to bronchitis, sore throat Disposition: Albuterol and Proventil nebs, azithromycin, Robitussin with dextromethorphan, pseudoephedrine, prednisone PCP follow-up in 24 hours for repeat evaluation, precautions given. Dragon Disclaimer Dragon Disclaimer This electronic medical record was generated, in whole or in part, using a voice recognition dictation system. Departure Departure Impression: Primary Impression: Asthma exacerbation Additional Impressions: Cough due to bronchospasm Sore throat Anxiety Disposition: 01 HOME, SELF-CARE Condition: IMPROVED Referrals: NO PCP (PCP) Patient Instructions: Asthma Attacks, Prevention, Asthma, Acute Bronchospasm, Asthma, Adult, Smoking, You Can Quit, [id number], Sore Throat Scripts Pseudoephedrine Hcl (SUDAFED 12-HOUR) 120 Mg Tablet.er 1 TAB PO BID, #20 TAB Prov: RADHA MCINTOSH MD 09/14/16 Albuterol Sulfate (PROVENTIL HFA INHALER) 6.7 Gm Hfa.aer.ad 1 PUFF IH PRN Q4HRS Y for FOR ASTHMA for 5 Days, INHALER 0 Refills Prov: RADHA MCINTOSH MD 09/14/16 Prednisone (PREDNISONE) 20 Mg Tablet 3 TAB PO DAILY for 5 Days, #15 TAB Prov: RADHA MCINTOSH MD 09/14/16 Guaifenesin/Dextromethorphan (Robitussin Xewkd-Wmnim-Aqed Dm) 1 Each Capsule 1 EACH PO QID for COUGH for 7 Days, #28 CAP Prov: RADHA MCINTOSH MD 09/14/16 Problem Qualifiers RADHA MCINTOSH MD September 14, 2016 08:36
[2016-09-14] MEDS ORDERED: IPRATRPIUM/ALBUTEROL 0.5/2.5MG 3 ML NEBU. NEB ONE ×3 (08:45)
[2016-09-14] MEDS ORDERED: 0.9 % SODIUM CHLORIDE 10 ML DISP.SYRIN. IV ONE (08:45)
[2016-09-14] MEDS ORDERED: HYDROmorphone 2 MG/ML VIAL IV ONE (08:45)
[2016-09-14] MEDS ORDERED: methylPREDNISolone SOD SUCC PF 125 MG/2 ML VIAL. IV ONE (08:45)
--- NOTE | 2016-09-14 08:48 | RAD ---
Indication: Cough and fever. Time of exam 0841 hours. Correlation is made with prior exam from 07/17/2016. FINDINGS: The heart size is normal. The lungs are clear. No pleural effusion or pneumothorax is identified. The pulmonary vascularity is normal. IMPRESSION: No acute abnormality detected.
[2016-09-14 09:15] LABS: BASO % 0 % (0-3); EOS % 1 % (0-3); HEMATOCRIT 40.5 % (39.0-53.0); HEMOGLOBIN 13.9 g/dL (13.0-17.5); LYMPH # 1.5 x10^3/uL (1.0-4.8); LYMPH % 10 % (24-48); MEAN CORPUSCULAR HEMOGLOBIN 30 pg (25-35); MEAN CORPUSCULAR HGB CONC 34 g/dL (31-37); MEAN CORPUSCULAR VOLUME 86 fL (79-100); MONO % 8 % (0-9); NEUT % 81 % (31-73); PLATELET COUNT 209 x10^3/uL (140-400); RED BLOOD COUNT 4.73 x10^6/uL (4.30-5.70); RED CELL DISTRIBUTION WIDTH 13.3 % (11.5-14.5); WHITE BLOOD COUNT 15.7 x10^3/uL (4.0-11.0)
[2016-09-14 09:36] LABS: CALCIUM 8.5 mg/dL (8.5-10.1); CREATININE 0.9 mg/dL (0.7-1.3); POTASSIUM 3.7 mmol/L (3.5-5.1)
[2016-09-14 09:41] LABS: ALBUMIN 3.5 g/dL (3.4-5.0); ALBUMIN/GLOBULIN RATIO 0.9 (1.0-1.7); TOTAL BILIRUBIN 0.5 mg/dL (0.2-1.0); TOTAL PROTEIN 7.5 g/dL (6.4-8.2)
[2016-09-14 09:46] LABS: OBC FLU VALID
[2016-09-14 10:00] VITALS: BP 137/66
[2016-09-14] MEDS ORDERED: PSEU120T9 PO (10:21)
[2016-09-14] MEDS ORDERED: PRED20TA PO (10:21)
[2016-09-14] MEDS ORDERED: GUAI1CAP16 PO (10:21)
[2016-09-14] MEDS ORDERED: PROVENTIL HFA6.7 GM IH (10:21)
[2016-09-14 10:22] LABS: NEGATIVE OBC STREP NEG
[2016-09-14 10:23] LABS: POSITIVE OBC STREP POS
[2016-09-15] MEDS ORDERED: MORP15TA PO (20:06)
== END 2016-09-14 10:25 | disposition home or self-care (01) ==
LOC: ER 08:13
DX: J45.901 Unspecified asthma with (acute) exacerbation (principal); J02.9 Acute pharyngitis, unspecified; F41.9 Anxiety disorder, unspecified; F12.10 Cannabis abuse, uncomplicated; F90.9 Attention-deficit hyperactivity disorder, unspecified type; F17.210 Nicotine dependence, cigarettes, uncomplicated; Z88.8 Allergy status to other drugs, medicaments and biological substances; Z88.5 Allergy status to narcotic agent; Z88.0 Allergy status to penicillin
CPT/HCPCS: 36415; 71020; 80053; 85027; 87070; 87804; 87880; 94250; 94640; 96361; 96374; 96375; 99285; J1170; J2060; J2930; J7030; J7620

== ENCOUNTER 2016-09-15 17:20 | Emergency (ER) | payer MEDICARE ==
[~2016-09-15] VITALS: Ht 172.7 cm; Wt 108.9 kg
[~2016-09-15 17:20] MED LIST: GUAI1CAP16 PO; PRED20TA PO; PROVENTIL HFA6.7 GM IH; PSEU120T9 PO
--- NOTE | 2016-09-15 18:31 | PHYS DOC ---
Past Medical History Past Medical History: Anxiety, Asthma, Other Additional Past Medical Histor: ADHD, mood disorder Past Surgical History: Appendectomy, Other Additional Past Surgical Histo: herniax 2 with mesh Alcohol Use: Rarely Drug Use: Marijuana Adult General Chief Complaint Chief Complaint: SYNCOPE HPI HPI 36-year-old gentleman presenting to the emergency department today after having a syncopal episode. He reports hitting his head with loss of consciousness for a few minutes. He denies urinary incontinence or tongue biting. He also complains of chest pain and pressure that radiates down the left arm. Onset today. Location generalized. Duration constant. No alleviating factors present. Review of systems is negative for fevers chills neck pain neck stiffness. He denies numbness weakness or tingling. All other review of systems is negative unless otherwise noted in history of present illness. Review of Systems Review of Systems SEE ABOVE. Current Medications Current Medications Current Medications Medications (Trade) Dose Ordered Sig/Ryan Start Time Stop Time Status Last Admin Dose Admin Lorazepam (Ativan) 1 mg 1X ONCE 09/15/16 19:15 09/15/16 19:17 DC Allergies Allergies Allergies Coded Allergies Type Severity Reaction Last Updated Verified Penicillins Allergy Intermediate 07/25/15 Yes fluoxetine Allergy Intermediate 07/25/15 Yes promethazine Allergy Intermediate 07/25/15 Yes codeine Adverse Reaction Mild itching 07/25/15 Yes Physical Exam Physical Exam Constitutional: Well developed, well nourished, no acute distress, non-toxic appearance. [] HENT: Normocephalic, atraumatic, bilateral external ears normal, oropharynx moist, no oral exudates, nose normal. [] Eyes: PERRLA, EOMI, conjunctiva normal, no discharge. [] Neck: Normal range of motion, no tenderness, supple, no stridor. [] Cardiovascular:Heart rate regular rhythm, no murmur [] Lungs & Thorax: Bilateral breath sounds clear to auscultation [] Abdomen: Bowel sounds normal, soft, no tenderness, no masses, no pulsatile masses. [] Skin: Warm, dry, no erythema, no rash. [] Back: No tenderness, no CVA tenderness. [] Extremities: No tenderness, no cyanosis, no clubbing, ROM intact, no edema. [] Neurologic: Alert and oriented X 3, normal motor function, normal sensory function, no focal deficits noted. [] Psychologic: Affect normal, judgement normal, mood normal. [] Current Patient Data Vital Signs Vital Signs Date Time Temp Pulse Resp B/P (MAP) Pulse Ox O2 Delivery O2 Flow Rate FiO2 09/15/16 18:14 98.3 83 18 132/71 (91) 96 Room Air 98.3 Lab Values Laboratory Tests Test 09/15/16 18:27 09/15/16 18:37 Urine Collection Type Unknown Urine Color Yellow Urine Clarity Clear Urine pH 6.0 Urine Specific [place] >=1.030 Urine Protein 30 mg/dL (NEG-TRACE) Urine Glucose (UA) Negative mg/dL (NEG) Urine Ketones (Stick) Negative mg/dL (NEG) Urine Blood Negative (NEG) Urine Nitrite Negative (NEG) Urine Bilirubin Negative (NEG) Urine Urobilinogen Dipstick 0.2 mg/dL (0.2 mg/dL) Urine Leukocyte Esterase Negative (NEG) Urine RBC Occ /HPF (0-2) Urine WBC Occ /HPF (0-4) Urine Squamous Epithelial Cells Occ /LPF Urine Bacteria 0 /HPF (0-FEW) Urine Mucus Mod /LPF White Blood Count 14.4 x10^3/uL (4.0-11.0) H Red Blood Count 4.20 x10^6/uL (4.30-5.70) L Hemoglobin 12.4 g/dL (13.0-17.5) L Hematocrit 36.4 % (39.0-53.0) L Mean Corpuscular Volume 87 fL (79-100) Mean Corpuscular Hemoglobin 30 pg (25-35) Mean Corpuscular Hemoglobin Concent 34 g/dL (31-37) Red Cell Distribution Width 13.7 % (11.5-14.5) Platelet Count 215 x10^3/uL (140-400) Neutrophils (%) (Auto) 85 % (31-73) H Lymphocytes (%) (Auto) 9 % (24-48) L Monocytes (%) (Auto) 6 % (0-9) Eosinophils (%) (Auto) 0 % (0-3) Basophils (%) (Auto) 0 % (0-3) Neutrophils # (Auto) 12.2 x10^3uL (1.8-7.7) H Lymphocytes # (Auto) 1.3 x10^3/uL (1.0-4.8) Monocytes # (Auto) 0.8 x10^3/uL (0.0-1.1) Eosinophils # (Auto) 0.0 x10^3/uL (0.0-0.7) Basophils # (Auto) 0.0 x10^3/uL (0.0-0.2) Sodium Level 142 mmol/L (136-145) Potassium Level 4.2 mmol/L (3.5-5.1) Chloride Level 109 mmol/L (98-107) H Carbon Dioxide Level 26 mmol/L (21-32) Anion Gap 7 (6-14) Blood Urea Nitrogen 21 mg/dL (8-26) Creatinine 1.0 mg/dL (0.7-1.3) Estimated GFR (Cockcroft-Gault) 85.0 Glucose Level 168 mg/dL (70-99) H Calcium Level 8.5 mg/dL (8.5-10.1) Troponin I Quantitative < 0.017 ng/mL (0.000-0.055) Lipase 61 U/L (73-393) L Laboratory Tests 09/15/16 18:37 Laboratory Tests 09/15/16 18:37 EKG EKG EKG shows mild tachycardia otherwise unremarkable. Reviewed by myself. [] EKG not consistent with HOCM, brugada, long or short QT syndrome, or AVRD Radiology/Procedures Radiology/Procedures [] Chest x-ray reviewed by myself shows no obvious pneumothorax or infiltrate. Course & Med Decision Making Course & Med Decision Making Pertinent Labs and Imaging studies reviewed. (See chart for details) [] 36-year-old gentleman presenting to the emergency department today with chest pain for greater than 6 hours. Vital signs afebrile with a normal heart rate. Otherwise unremarkable. EKG unremarkable. Chest x-ray unremarkable. Blood work obtained. Patient had a mild nonspecific leukocytosis. Chemistry panel otherwise shows negative troponin. Otherwise unremarkable. Urinalysis within normal limits. He did have a syncopal episode as well head CT was unremarkable. Patient is feeling better after Ativan treatment. Patient was subsequent discharged home to follow up with PCP over the next 2-3 days. Heart score of 0. Dragon Disclaimer Dragon Disclaimer This electronic medical record was generated, in whole or in part, using a voice recognition dictation system. Departure Departure Impression: Primary Impression: Chest pain Additional Impression: Syncope Disposition: 01 HOME, SELF-CARE Condition: STABLE Referrals: NO PCP (PCP) Patient Instructions: Chest Pain (Nonspecific), [id number] Additional Instructions: Thank you for allowing us to participate in your care today. Followup with your primary care physician in 3 days if your symptoms do not improve. If you do not have a primary care provider you can ask for a list of our primary care providers. Return to the emergency department you have any new or concerning findings. This should be evaluated by the primary care physician and any necessary consulting services for continued management within a few days after discharge. Return to emergency room if you have any new or concerning symptoms including but not limited to fever, chills, nausea, vomiting, intractable pain, any new rashes, chest pain, shortness of air, uncontrolled bleeding, difficulty breathing, and/or vision loss. Problem Qualifiers ALEXA MUELLER MD September 15, 2016 18:31
[2016-09-15 18:44] LABS: BASO % 0 % (0-3); EOS % 0 % (0-3); HEMATOCRIT 36.4 % (39.0-53.0); HEMOGLOBIN 12.4 g/dL (13.0-17.5); LYMPH # 1.3 x10^3/uL (1.0-4.8); LYMPH % 9 % (24-48); MEAN CORPUSCULAR HEMOGLOBIN 30 pg (25-35); MEAN CORPUSCULAR HGB CONC 34 g/dL (31-37); MEAN CORPUSCULAR VOLUME 87 fL (79-100); MONO % 6 % (0-9); NEUT % 85 % (31-73); PLATELET COUNT 215 x10^3/uL (140-400); RED CELL DISTRIBUTION WIDTH 13.7 % (11.5-14.5); WHITE BLOOD COUNT 14.4 x10^3/uL (4.0-11.0)
[2016-09-15 18:50] LABS: BILIRUBIN,URINE NEGATIVE (NEG); GLUCOSE,URINE NEGATIVE (NEG); NITRITE,URINE NEGATIVE (NEG); PROTEIN,URINE 30 mg/dL (NEG-TRACE); UROBILINOGEN,URINE 0.2 mg/dL (0.2 mg/dL)
[2016-09-15 18:54] LABS: RBC,URINE OCC /HPF (0-2); WBC,URINE OCC /HPF (0-4)
[2016-09-15 18:55] VITALS: BP 130/69
[2016-09-15 18:55] LABS: BACTERIA,URINE 0 /HPF (0-FEW); SQUAMOUS EPITHELIAL CELL,UR OCC /LPF
[2016-09-15 18:58] LABS: CALCIUM 8.5 mg/dL (8.5-10.1); POTASSIUM 4.2 mmol/L (3.5-5.1)
[2016-09-15] MEDS ORDERED: LORazepam 1 MG TABLET PO ONE (19:15)
--- NOTE | 2016-09-15 19:29 | RAD ---
PROCEDURE CT head without contrast HISTORY Syncope, fell and hit head, head trauma TECHNIQUE Exposure: One or more of the following individualized dose reduction techniques were utilized for this exam: 1. Automated exposure control. 2. Adjustment of the mA and/or kV according to patient size. 3. Use of iterative reconstruction technique. [address] imaging skullbase to vertex COMPARISON No prior FINDINGS No intracranial hemorrhage, mass, hydrocephalus, extra-axial fluid collections or infarction. Mild right greater than left inferior frontal lobe hypodensity just above the anterior cranial fossa likely beam hardening artifact from the skullbase could obscure pathology at these locations. Opacification left maxillary sinus. Cyst or polyp right maxillary sinus. Orbits, mastoids and bones are unremarkable. IMPRESSION No acute intracranial CT abnormality. Electronically signed by: Karson Rondon MD (September 15, 2016 19:28:15)
[2016-09-15] MEDS ORDERED: MORPHINE IR 15 MG TABLET ONE (20:00)
[2016-09-15] MEDS ORDERED: MORP15TA PO (20:06)
[2016-09-15] MEDS ORDERED: MORPHINE IR 15 MG TABLET PO ONE (20:15)
--- NOTE | 2016-09-16 09:41 | EKG ---
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
--- NOTE | 2016-09-16 09:42 | RAD ---
Exam performed: One view chest. Indication: SYNCOPE Date of Service: 09/15/2016 8:27 PM Comparison: 09/14/16. Single AP upright portable view chest findings: Cardiomediastinal silhouette is within limits of normal. No acute infiltrates, effusion or pneumothorax is detected. The bony structures are normal. Impression: No acute cardiopulmonary process is detected.
== END 2016-09-15 20:10 | disposition home or self-care (01) ==
LOC: ER 17:20
DX: R07.89 Other chest pain (principal); R55 Syncope and collapse; D72.829 Elevated white blood cell count, unspecified; R51 Headache; F41.9 Anxiety disorder, unspecified; J45.909 Unspecified asthma, uncomplicated; F90.9 Attention-deficit hyperactivity disorder, unspecified type; F12.10 Cannabis abuse, uncomplicated; Z88.8 Allergy status to other drugs, medicaments and biological substances; Z88.5 Allergy status to narcotic agent; Z88.0 Allergy status to penicillin
CPT/HCPCS: 36415; 70450; 71010; 80048; 81001; 83690; 84484; 85027; 93005; 99285-25

== ENCOUNTER 2016-10-13 17:21 | Emergency (ER) | payer MEDICARE ==
[~2016-10-13] VITALS: Ht 172.7 cm; Wt 117.9 kg
[~2016-10-13 17:21] MED LIST changes: +MORP15TA PO
[2016-10-13] MEDS ORDERED: IV NORMAL SALINE 1000ML BAG 1,000 ML IV ONE (18:30)
[2016-10-13] MEDS ORDERED: fentaNYL PF VIAL 100 MCG/2 ML VIAL IV ONE (18:30)
[2016-10-13] MEDS ORDERED: METOCLOPRAMIDE HCL 10 MG/2 ML VIAL. IV ONE (18:30)
[2016-10-13] MEDS ORDERED: IOHEXOL 300 MG/ML 75 ML VIAL IV ONE (18:30)
--- NOTE | 2016-10-13 18:38 | PHYS DOC ---
Past Medical History Past Medical History: Anxiety, Asthma, Other Additional Past Medical Histor: ADHD, mood disorder Past Surgical History: Appendectomy, Other Additional Past Surgical Histo: herniax 2 with mesh Alcohol Use: Rarely Drug Use: Marijuana Adult General Chief Complaint Chief Complaint: ABDOMINAL PAIN HPI HPI Patient is a 36 year old M who presents with right upper quadrant pain for the past day and a half. She was seen at [facility] prior to arrival and had a full workup there including lab work and ultrasound that was all unremarkable and discharged home. Patient stated the pain is still persistent therefore came for a second opinion. She complains of nausea and vomiting and no diarrhea. Patient denies any fevers. Pertinent exam findings: Positive tenderness palpation right upper quadrant and epigastric with bowel sounds are normal 4 quadrants ED course: Patient was seen and examined examined CBC, CMP, lipase, CT scan and pelvis, 1 L normal saline, 100 g of fentanyl as ordered 1944: Patient was reevaluated and is requesting more pain medication explained to him that I prescribed narcotic pain medication every 4 hours and since he was just at [facility] and received Dilaudid I dosed him with fentanyl instead. Discussed alternative pain management as well as nonnarcotic pain medication and decided on Toradol. 1952: Patient eloped and refused to take the Toradol. Pertinent results: CT abdomen and pelvis IMPRESSION: 1. No acute abdominal findings. 2. Postsurgical changes at the GE junction. MDM: After reviewing the chart, CC/HPI/PMH, physical exam, [lab results], [ radiological results], not believe the patient has intra-abdominal emergency warranting further workup and/or admission at this time. Patient eloped and refused Toradol prior to me discussing CT results with the patient. Patient displayed drug-seeking behavior. Review of Systems Review of Systems GEN: Denies fevers, chills, sweats HEENT: Denies blurred vision, sore throat CV: Denies chest pain RESP: Denies shortness of air, cough GI: Upper quadrant pain NEURO: Denies confusion, dizziness MSK: Denies weakness, joint pain/swelling Current Medications Current Medications Current Medications Medications (Trade) Dose Ordered Sig/Ryan Start Time Stop Time Status Last Admin Dose Admin Fentanyl Citrate (Fentanyl 2ml Vial) 100 mcg 1X ONCE 10/13/16 18:30 10/13/16 18:31 DC 10/13/16 18:50 100 MCG Iohexol (Omnipaque 300 Mg/ml) 75 ml 1X ONCE 10/13/16 18:30 10/13/16 18:31 DC 10/13/16 19:11 75 ML Ketorolac Tromethamine (Toradol) 30 mg 1X ONCE 10/13/16 20:00 10/13/16 20:01 Metoclopramide HCl (Reglan) 10 mg 1X ONCE 10/13/16 18:30 10/13/16 18:31 DC 10/13/16 18:49 10 MG Sodium Chloride 1,000 ml @ 1,000 mls/hr 1X ONCE 10/13/16 18:30 10/13/16 19:29 DC 10/13/16 18:49 1,000 MLS/HR Allergies Allergies Allergies Coded Allergies Type Severity Reaction Last Updated Verified Penicillins Allergy Intermediate 07/25/15 Yes fluoxetine Allergy Intermediate 07/25/15 Yes promethazine Allergy Intermediate 07/25/15 Yes codeine Adverse Reaction Mild itching 07/25/15 Yes Physical Exam Physical Exam GEN.: No apparent distress. Alert and oriented. HEENT: Head is normocephalic, atraumatic NECK: Supple. LUNGS: CTAB. HEART: RRR, S1, S2 present. Peripheral pulses intact ABDOMEN: Soft, right upper quadrant and epigastric tenderness palpation. Positive bowel sounds. EXTREMITIES: Without any cyanosis. NEUROLOGIC: Normal speech, normal tone PSYCHIATRIC: Normal affect, normal mood. SKIN: No ulcerations Current Patient Data Vital Signs Vital Signs Date Time Temp Pulse Resp B/P (MAP) Pulse Ox O2 Delivery O2 Flow Rate FiO2 10/13/16 19:42 91 18 124/56 (78) 95 Room Air 10/13/16 17:45 98.5 98.5 Lab Values Laboratory Tests Test 10/13/16 18:38 10/13/16 18:45 White Blood Count 6.2 x10^3/uL (4.0-11.0) Red Blood Count 4.12 x10^6/uL (4.30-5.70) L Hemoglobin 12.2 g/dL (13.0-17.5) L Hematocrit 36.4 % (39.0-53.0) L Mean Corpuscular Volume 88 fL (79-100) Mean Corpuscular Hemoglobin 30 pg (25-35) Mean Corpuscular Hemoglobin Concent 33 g/dL (31-37) Red Cell Distribution Width 13.7 % (11.5-14.5) Platelet Count 193 x10^3/uL (140-400) Neutrophils (%) (Auto) 57 % (31-73) Lymphocytes (%) (Auto) 30 % (24-48) Monocytes (%) (Auto) 9 % (0-9) Eosinophils (%) (Auto) 2 % (0-3) Basophils (%) (Auto) 1 % (0-3) Neutrophils # (Auto) 3.5 x10^3uL (1.8-7.7) Lymphocytes # (Auto) 1.9 x10^3/uL (1.0-4.8) Monocytes # (Auto) 0.6 x10^3/uL (0.0-1.1) Eosinophils # (Auto) 0.1 x10^3/uL (0.0-0.7) Basophils # (Auto) 0.0 x10^3/uL (0.0-0.2) Sodium Level 144 mmol/L (136-145) Potassium Level 3.8 mmol/L (3.5-5.1) Chloride Level 108 mmol/L (98-107) H Carbon Dioxide Level 29 mmol/L (21-32) Anion Gap 7 (6-14) Blood Urea Nitrogen 18 mg/dL (8-26) Creatinine 1.2 mg/dL (0.7-1.3) Estimated GFR (Cockcroft-Gault) 68.9 BUN/Creatinine Ratio 15 (6-20) Glucose Level 126 mg/dL (70-99) H Calcium Level 8.0 mg/dL (8.5-10.1) L Total Bilirubin 0.2 mg/dL (0.2-1.0) Aspartate Amino Transferase (AST) 15 U/L (15-37) Alanine Aminotransferase (ALT) 15 U/L (16-63) L Alkaline Phosphatase 54 U/L (46-116) Total Protein 5.9 g/dL (6.4-8.2) L Albumin 3.3 g/dL (3.4-5.0) L Albumin/Globulin Ratio 1.3 (1.0-1.7) Lipase 70 U/L (73-393) L Urine Collection Type Unknown Urine Color Yellow Urine Clarity Clear Urine pH 6.0 Urine Specific [place] 1.025 Urine Protein Negative mg/dL (NEG-TRACE) Urine Glucose (UA) Negative mg/dL (NEG) Urine Ketones (Stick) Negative mg/dL (NEG) Urine Blood Negative (NEG) Urine Nitrite Negative (NEG) Urine Bilirubin Negative (NEG) Urine Urobilinogen Dipstick 0.2 mg/dL (0.2 mg/dL) Urine Leukocyte Esterase Negative (NEG) Urine RBC 0 /HPF (0-2) Urine WBC 1-4 /HPF (0-4) Urine Squamous Epithelial Cells Occ /LPF Urine Bacteria Few /HPF (0-FEW) Urine Mucus Mod /LPF Urine Opiates Screen Pos (NEG) Urine Methadone Screen Neg (NEG) Urine Barbiturates Neg (NEG) Urine Phencyclidine Screen Neg (NEG) Urine Amphetamine/Methamphetamine Neg (NEG) Urine Benzodiazepines Screen Pos (NEG) Urine Cocaine Screen Neg (NEG) Urine Cannabinoids Screen Pos (NEG) Urine Ethyl Alcohol Neg (NEG) Laboratory Tests 10/13/16 18:38 Laboratory Tests 10/13/16 18:38 EKG EKG [] Radiology/Procedures Radiology/Procedures CT scan IMPRESSION: 1. No acute abdominal findings. 2. Postsurgical changes at the GE junction.[] Course & Med Decision Making Course & Med Decision Making Pertinent Labs and Imaging studies reviewed. (See chart for details) [] Dragon Disclaimer Dragon Disclaimer This electronic medical record was generated, in whole or in part, using a voice recognition dictation system. Departure Departure Impression: Primary Impression: Abdominal pain Additional Impression: At risk for elopement from healthcare setting Disposition: 07 AGAINST MEDICAL ADVICE Condition: STABLE Referrals: NO PCP (PCP) Additional Instructions: Patient did not leave AGAINST MEDICAL ADVICE he eloped from the emergency room prior to me discussing alternative treatments with him. Problem Qualifiers Primary Impression: Abdominal pain Abdominal location: right upper quadrant Qualified Codes: R10.11 - Right upper quadrant pain GARRETT CASTREJON DO Oct 13, 2016 18:38
[2016-10-13 18:48] LABS: BASO % 1 % (0-3); EOS % 2 % (0-3); HEMATOCRIT 36.4 % (39.0-53.0); HEMOGLOBIN 12.2 g/dL (13.0-17.5); LYMPH # 1.9 x10^3/uL (1.0-4.8); LYMPH % 30 % (24-48); MEAN CORPUSCULAR HEMOGLOBIN 30 pg (25-35); MEAN CORPUSCULAR HGB CONC 33 g/dL (31-37); MEAN CORPUSCULAR VOLUME 88 fL (79-100); MONO % 9 % (0-9); NEUT % 57 % (31-73); PLATELET COUNT 193 x10^3/uL (140-400); RED BLOOD COUNT 4.12 x10^6/uL (4.30-5.70); RED CELL DISTRIBUTION WIDTH 13.7 % (11.5-14.5); WHITE BLOOD COUNT 6.2 x10^3/uL (4.0-11.0)
[2016-10-13 19:00] LABS: CREATININE 1.2 mg/dL (0.7-1.3); GFR 68.9; POTASSIUM 3.8 mmol/L (3.5-5.1)
[2016-10-13 19:01] LABS: BARBITURATES NEG (NEG); BENZODIAZEPINES POS (NEG); BILIRUBIN,URINE NEGATIVE (NEG); CANNABINOIDS POS (NEG); COCAINE NEG (NEG); GLUCOSE,URINE NEGATIVE (NEG); METHADONE NEG (NEG); NITRITE,URINE NEGATIVE (NEG); OPIATES POS (NEG); PHENCYCLIDINE NEG (NEG); PROTEIN,URINE NEGATIVE (NEG-TRACE); UROBILINOGEN,URINE 0.2 mg/dL (0.2 mg/dL)
[2016-10-13 19:07] LABS: BACTERIA,URINE FEW /HPF (0-FEW); RBC,URINE 0 /HPF (0-2); SQUAMOUS EPITHELIAL CELL,UR OCC /LPF
[2016-10-13 19:08] LABS: ALBUMIN 3.3 g/dL (3.4-5.0); ALBUMIN/GLOBULIN RATIO 1.3 (1.0-1.7); TOTAL BILIRUBIN 0.2 mg/dL (0.2-1.0); TOTAL PROTEIN 5.9 g/dL (6.4-8.2)
[2016-10-13 19:42] VITALS: BP 124/56
--- NOTE | 2016-10-13 19:47 | RAD ---
Indication: Severe right upper quadrant pain and fever today. Technique: Axial images and coronal and sagittal reformatted images are provided. 75 mL of intravenous Omnipaque 300 was administered. No comparison is provided at the time of dictation. One or more of the following individualized dose reduction techniques were utilized for this examination: 1. Automated exposure control 2. Adjustment of the mA and/or kV according to patient size 3. Use of iterative reconstruction technique Findings: There is atelectasis in the right lung base. There is no pleural effusion. The heart is not enlarged. Liver is unremarkable. Gallbladder is contracted. Spleen is not enlarged. Pancreas and adrenals are unremarkable. Kidneys are symmetrically perfused. The aorta is normal-caliber. Small fat-containing umbilical hernia is noted. There is no small bowel obstruction or mural thickening. Colon is grossly unremarkable. Lack of oral contrast limits evaluation of bowel. There are postsurgical changes at the GE junction. The appendix is not definitely visualized, there are no secondary findings of an appendicitis. Bladder is mildly distended and grossly unremarkable. Calcified phleboliths are noted. IMPRESSION: 1. No acute abdominal findings. 2. Postsurgical changes at the GE junction. Electronically signed by: Jun Diaz MD (10/13/2016 7:44 PM)
[2016-10-13] MEDS ORDERED: KETOROLAC TROMETHAMINE 30 MG/ML INJ. IV ONE (20:00)
== END 2016-10-13 19:58 | disposition left against medical advice (07) ==
LOC: ER 17:21
DX: R10.11 Right upper quadrant pain (principal); Z88.8 Allergy status to other drugs, medicaments and biological substances; J45.909 Unspecified asthma, uncomplicated; F90.9 Attention-deficit hyperactivity disorder, unspecified type; F12.10 Cannabis abuse, uncomplicated; Z90.49 Acquired absence of other specified parts of digestive tract; Z88.0 Allergy status to penicillin; Z88.6 Allergy status to analgesic agent; R10.13 Epigastric pain
CPT/HCPCS: 36415; 74177; 80053; 80305; 80320; 81001; 83690; 85027; 96361; 96374; 96375; 99285; J2765; J3010; J7030; Q9967; G0481

== ENCOUNTER 2016-11-02 11:14 | Emergency (ER) | payer MEDICARE ==
[~2016-11-02] VITALS: Ht 175.3 cm; Wt 108.9 kg
[2016-11-02 11:20] VITALS: BP 151/84
--- NOTE | 2016-11-02 11:53 | PHYS DOC ---
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 He states that he was wearing Unna boot that his dog tore. He is here seeking a prescription for replacement boot as well as narcotic pain medications. He states that he has hydrocodone but that makes him itch and is requesting tramadol. States he did speak with his primary orthopedic physician's office today and was advised his physician was out of town and is scheduled for appointment in 5 days. Review of Systems Review of Systems Musculoskeletal: right foot pain[] Allergies Allergies Allergies Coded Allergies Type Severity Reaction Last Updated Verified Penicillins Allergy Intermediate 07/25/15 Yes fluoxetine Allergy Intermediate 07/25/15 Yes promethazine Allergy Intermediate 07/25/15 Yes codeine Adverse Reaction Mild itching 07/25/15 Yes Physical Exam Physical Exam Constitutional: Well developed, well nourished, no acute distress, non-toxic appearance. [] HENT: Normocephalic, atraumatic, bilateral external ears normal, oropharynx moist, no oral exudates, nose normal. [] Eyes: PERRLA, EOMI, conjunctiva normal, no discharge. [] Neck: Normal range of motion, no tenderness, supple, no stridor. [] Cardiovascular:Heart rate regular rhythm, no murmur [] Lungs & Thorax: Bilateral breath sounds clear to auscultation [] Abdomen: Bowel sounds normal, soft, no tenderness, no masses, no pulsatile masses. [] Skin: Warm, dry, no erythema, no rash. [] Back: No tenderness, no CVA tenderness. [] Extremities: No tenderness,no swelling, no deformity, no cyanosis, no clubbing, ROM intact, no edema. [] Neurologic: Alert and oriented X 3, normal motor function, normal sensory function, no focal deficits noted. [] Psychologic: Affect normal, judgement normal, mood normal. [] Current Patient Data Vital Signs Vital Signs Date Time Temp Pulse Resp B/P (MAP) Pulse Ox O2 Delivery O2 Flow Rate FiO2 11/02/16 11:20 97.8 91 16 96 Room Air 97.8 EKG EKG [] Radiology/Procedures Radiology/Procedures [] Course & Med Decision Making Course & Med Decision Making discussed with the patient theUnna boot replacement and advised to follow back up with his orthopedic physician as they can replace this. I did advise him he would not be given further pain medication refills or change of medication in the emergency department that he should follow-up with his primary care provider. Patient verbalized understanding and will go to the office today. Pertinent Labs and Imaging studies reviewed. (See chart for details) [] Dragon Disclaimer Dragon Disclaimer This electronic medical record was generated, in whole or in part, using a voice recognition dictation system. Departure Departure Impression: Primary Impression: Foot pain Disposition: 01 HOME, SELF-CARE Condition: STABLE Referrals: NO PCP (PCP) Patient Instructions: Foot Fracture EBEN BOB ELDERLY SITTER Nov 02, 2016 11:53
[2016-11-02] MEDS ORDERED: traMADol 50 MG TABLET PO ONE (12:15)
== END 2016-11-02 12:07 | disposition home or self-care (01) ==
LOC: ER 11:14
DX: M79.672 Pain in left foot (principal); F41.9 Anxiety disorder, unspecified; J45.909 Unspecified asthma, uncomplicated; I10 Essential (primary) hypertension; F90.9 Attention-deficit hyperactivity disorder, unspecified type; F39 Unspecified mood [affective] disorder; Z90.49 Acquired absence of other specified parts of digestive tract; F12.10 Cannabis abuse, uncomplicated; Z88.0 Allergy status to penicillin; Z88.5 Allergy status to narcotic agent; Z88.8 Allergy status to other drugs, medicaments and biological substances
CPT/HCPCS: 99281

== ENCOUNTER 2016-12-28 17:10 | Emergency (ER) | payer MEDICARE, MEDICAID ==
[~2016-12-28] VITALS: Ht 172.7 cm; Wt 102.1 kg
--- NOTE | 2016-12-28 17:42 | PHYS DOC ---
Past Medical History Past Medical History: Anxiety, Asthma, Hypertension, Other Additional Past Medical Histor: ADHD, mood disorder Past Surgical History: Appendectomy, Other Additional Past Surgical Histo: herniax 2 with mesh Alcohol Use: Occasionally Drug Use: Marijuana Adult General Chief Complaint Chief Complaint: ABDOMINAL PAIN HPI HPI Patient is a 36 year old male who presents with right upper quadrant pain. He states his been going on for last 3 months and is worse after he eats. Last few days that really worse. He's been using Tylenol, occasional Motrin and antacids without any relief. He denies any vomiting but states she is feeling back up into his throat. He also states his been having about 4 loose stools a day. He denies any fevers or chills. He states he was hospitalized recently and [place] for similar symptoms and they told him it could be his gallbladder. He does not have a primary care physician in [place] as of yet. He has had hiatal hernia repair 2 the last was approximately 15 years ago. Review of Systems Review of Systems Constitutional: Denies fever or chills [] Eyes: Denies change in visual acuity, redness, or eye pain [] HENT: Denies nasal congestion or sore throat [] Respiratory: Denies cough or shortness of breath [] Cardiovascular: No additional information not addressed in HPI [] GI: Positive for abdominal pain, and multiple loose stools, Denies bloody stools or nausea, vomiting[] : Denies dysuria or hematuria [] Musculoskeletal: Denies back pain or joint pain [] Integument: Denies rash or skin lesions [] Neurologic: Denies headache, focal weakness or sensory changes [] Endocrine: Denies polyuria or polydipsia [] Current Medications Current Medications Current Medications Medications (Trade) Dose Ordered Sig/Ryan Start Time Stop Time Status Last Admin Dose Admin Morphine Sulfate 4 mg 1X ONCE 12/28/16 19:15 12/28/16 19:16 DC 12/28/16 19:19 4 MG Multi-Ingredient Mouthwash/Gargle (Gi Cocktail Single Dose) 15 ml 1X ONCE 12/28/16 20:30 12/28/16 20:31 DC 12/28/16 20:52 15 ML Ondansetron HCl (Zofran) 4 mg 1X ONCE 12/28/16 17:45 12/28/16 17:46 DC 12/28/16 18:28 4 MG Sodium Chloride 1,000 ml @ 1,000 mls/hr 1X ONCE 12/28/16 17:45 12/28/16 18:44 DC 12/28/16 18:28 1,000 MLS/HR Allergies Allergies Allergies Coded Allergies Type Severity Reaction Last Updated Verified Penicillins Allergy Intermediate 07/25/15 Yes fluoxetine Allergy Intermediate 07/25/15 Yes promethazine Allergy Intermediate 07/25/15 Yes codeine Adverse Reaction Mild itching 07/25/15 Yes Physical Exam Physical Exam Constitutional: Well developed, well nourished, no acute distress, non-toxic appearance. [] HENT: Normocephalic, atraumatic, bilateral external ears normal, oropharynx moist, no oral exudates, nose normal. [] Eyes: PERRLA, EOMI, conjunctiva normal, no discharge. [] Neck: Normal range of motion, no tenderness, supple, no stridor. [] Cardiovascular:Heart rate regular rhythm, no murmur [] Lungs & Thorax: Bilateral breath sounds clear to auscultation [] Abdomen: Bowel sounds normal, soft, mild tenderness to palpation in the right upper quadrant, no rebound or guarding noted, no masses, no pulsatile masses. [ ] Skin: Warm, dry, no erythema, no rash. [] Back: No tenderness, no CVA tenderness. [] Extremities: No tenderness, no cyanosis, no clubbing, ROM intact, no edema. [] Neurologic: Alert and oriented X 3, normal motor function, normal sensory function, no focal deficits noted. [] Psychologic: Affect normal, judgement normal, mood normal. [] Current Patient Data Vital Signs Vital Signs Date Time Temp Pulse Resp B/P (MAP) Pulse Ox O2 Delivery O2 Flow Rate FiO2 12/28/16 20:12 76 121/63 (82) 95 Room Air 12/28/16 19:19 18 12/28/16 17:36 98.8 98.8 Lab Values Laboratory Tests Test 12/28/16 17:59 White Blood Count 8.2 x10^3/uL (4.0-11.0) Red Blood Count 4.80 x10^6/uL (4.30-5.70) Hemoglobin 14.1 g/dL (13.0-17.5) Hematocrit 41.0 % (39.0-53.0) Mean Corpuscular Volume 85 fL (79-100) Mean Corpuscular Hemoglobin 29 pg (25-35) Mean Corpuscular Hemoglobin Concent 34 g/dL (31-37) Red Cell Distribution Width 14.2 % (11.5-14.5) Platelet Count 198 x10^3/uL (140-400) Neutrophils (%) (Auto) 69 % (31-73) Lymphocytes (%) (Auto) 22 % (24-48) L Monocytes (%) (Auto) 7 % (0-9) Eosinophils (%) (Auto) 2 % (0-3) Basophils (%) (Auto) 1 % (0-3) Neutrophils # (Auto) 5.6 x10^3uL (1.8-7.7) Lymphocytes # (Auto) 1.8 x10^3/uL (1.0-4.8) Monocytes # (Auto) 0.5 x10^3/uL (0.0-1.1) Eosinophils # (Auto) 0.2 x10^3/uL (0.0-0.7) Basophils # (Auto) 0.1 x10^3/uL (0.0-0.2) Urine Collection Type Void Urine Color Yellow Urine Clarity Clear Urine pH 6.0 Urine Specific [place] 1.025 Urine Protein Negative mg/dL (NEG-TRACE) Urine Glucose (UA) Negative mg/dL (NEG) Urine Ketones (Stick) Negative mg/dL (NEG) Urine Blood Negative (NEG) Urine Nitrite Negative (NEG) Urine Bilirubin Negative (NEG) Urine Urobilinogen Dipstick 0.2 mg/dL (0.2 mg/dL) Urine Leukocyte Esterase Negative (NEG) Urine RBC 0 /HPF (0-2) Urine WBC 0 /HPF (0-4) Urine Squamous Epithelial Cells Few /LPF Urine Bacteria 0 /HPF (0-FEW) Urine Mucus Marked /LPF Sodium Level 144 mmol/L (136-145) Potassium Level 3.4 mmol/L (3.5-5.1) L Chloride Level 108 mmol/L (98-107) H Carbon Dioxide Level 27 mmol/L (21-32) Anion Gap 9 (6-14) Blood Urea Nitrogen 15 mg/dL (8-26) Creatinine 1.1 mg/dL (0.7-1.3) Estimated GFR (Cockcroft-Gault) 76.2 Glucose Level 123 mg/dL (70-99) H Calcium Level 8.0 mg/dL (8.5-10.1) L Total Bilirubin 0.3 mg/dL (0.2-1.0) Direct Bilirubin 0.1 mg/dL (0.0-0.2) Aspartate Amino Transferase (AST) 15 U/L (15-37) Alanine Aminotransferase (ALT) 22 U/L (16-63) Alkaline Phosphatase 61 U/L (46-116) Creatine Kinase 67 U/L (39-308) Creatine Kinase MB (Mass) 1.0 ng/mL (0.0-3.6) Creatine Kinase MB Relative Index 1.5 % (0-4) Troponin I Quantitative < 0.017 ng/mL (0.000-0.055) Total Protein 6.5 g/dL (6.4-8.2) Albumin 3.6 g/dL (3.4-5.0) Lipase 102 U/L (73-393) Urine Opiates Screen Neg (NEG) Urine Methadone Screen Neg (NEG) Urine Barbiturates Neg (NEG) Urine Phencyclidine Screen Neg (NEG) Urine Amphetamine/Methamphetamine Pos (NEG) Urine Benzodiazepines Screen Neg (NEG) Urine Cocaine Screen Neg (NEG) Urine Cannabinoids Screen Pos (NEG) Urine Ethyl Alcohol Neg (NEG) Laboratory Tests 12/28/16 17:59 Laboratory Tests 12/28/16 17:59 EKG EKG [] Radiology/Procedures Radiology/Procedures [facility] [address] [place], [place] [id number] IMAGING REPORT Signed PATIENT: KAILEE KENDALL ACCOUNT: [id number] : 1980 LOCATION: ER AGE: 36 SEX: M EXAM STATUS: REG ER ORD. PHYSICIAN: CHUN STANLEY MD REASON: epigastric pain PROCEDURE: ABDOMEN LTD LIMITED ABDOMINAL ULTRASOUND History: Right upper quadrant and epigastric pain. Comparison: CT abdomen pelvis October 13, 2016. Procedure: Transabdominal ultrasound images are obtained. Findings: Visualized pancreas is unremarkable. Liver is mildly increased in echogenicity. No focal hepatic masses are identified. The right hepatic lobe measures 17.2 cm in length. Gallbladder is partially contracted. No cholelithiasis or cholecystitis is identified. Common bile duct measures normally at 3 mm in diameter. Right kidney measures 9.4 cm in length. There is no evidence of stone or hydronephrosis. Visualized IVC demonstrates normal caliber. Impression: 1. Mildly echogenic liver, compatible fatty liver disease. 2. Otherwise, unremarkable right upper quadrant ultrasound. Bone Electronically signed by: Pete Blair MD (12/28/2016 7:45 PM) [facility] DICTATED and SIGNED BY: PETE BLAIR MD DATE: 12/28/161942 CC: CHUN STANLEY MD; NO PCP ~ Impressions: Epigastric/right upper quadrant pain Course & Med Decision Making Course & Med Decision Making Pertinent Labs and Imaging studies reviewed. (See chart for details) Labs do not show any acute abnormalities. Ultrasound of right upper quadrant within normal limits. Patient felt better with a GI cocktail. He is being discharged with any mEq by mouth potassium over the next 2 days. In addition he' ll be discharged with Protonix 20 mg daily for 2 weeks, for pain and tramadol 50 mg every 6 #14. He's a follow-up with Dr. Glover. Return precautions given. He is agreeable plan of being discharged in stable condition this time. Dragon Disclaimer Dragon Disclaimer This electronic medical record was generated, in whole or in part, using a voice recognition dictation system. Departure Departure Impression: Primary Impression: Abdominal pain Disposition: ADMITTED INPATIENT Condition: STABLE Referrals: NO PCP (PCP) KAYLAN WOODWARD MD Patient Instructions: Abdominal Pain Additional Instructions: Your blood work did not show any acute abnormalities. Your being discharged home. Your being prescribed 3 different medications. Marcio potassium that you need take one tablet daily for the next 2 days. The next protonic switches an acid nikita please take it for the next 2 weeks and to follow-up with Dr. Glover. The final once pain meds. Please follow the instructions on the label. You should avoid alcohol and ibuprofen/Motrin as both of these can irritate her stomach and make it hurt. Give severe pain, fevers or other concerns please return back to emergency department otherwise follow-up with Dr. Glover in 2 weeks. Please call his office and schedule appointment. Scripts Pantoprazole Sodium (PROTONIX) 20 Mg Tablet.dr 20 MG PO DAILY, #14 TAB Prov: CHUN STANLEY MD 12/28/16 Potassium Chloride (POTASSIUM CHLORIDE) 20 Meq Tablet.er 20 MEQ PO DAILY for 2 Days, #2 TAB.SR Prov: CHUN STANLEY MD 12/28/16 Tramadol Hcl (TRAMADOL HCL) 50 Mg Tablet 50 MG PO Q6H Y for PAIN, #14 TAB Prov: CHUN STANLEY MD 12/28/16 Problem Qualifiers Primary Impression: Abdominal pain Abdominal location: epigastric Qualified Codes: R10.13 - Epigastric pain CHUN STANLEY MD Dec 28, 2016 17:42
[2016-12-28] MEDS ORDERED: ONDANSETRON PF 4 MG/2 ML VIAL. IV ONE (17:45)
[2016-12-28] MEDS ORDERED: IV NORMAL SALINE 1000ML BAG 1,000 ML IV ONE (17:45)
[2016-12-28 18:10] LABS: BASO # 0.1 x10^3/uL (0.0-0.2); BASO % 1 % (0-3); EOS % 2 % (0-3); HEMOGLOBIN 14.1 g/dL (13.0-17.5); LYMPH # 1.8 x10^3/uL (1.0-4.8); LYMPH % 22 % (24-48); MEAN CORPUSCULAR HEMOGLOBIN 29 pg (25-35); MEAN CORPUSCULAR HGB CONC 34 g/dL (31-37); MEAN CORPUSCULAR VOLUME 85 fL (79-100); MONO % 7 % (0-9); NEUT % 69 % (31-73); PLATELET COUNT 198 x10^3/uL (140-400); RED CELL DISTRIBUTION WIDTH 14.2 % (11.5-14.5); WHITE BLOOD COUNT 8.2 x10^3/uL (4.0-11.0)
[2016-12-28 18:23] LABS: BILIRUBIN,URINE NEGATIVE (NEG); GLUCOSE,URINE NEGATIVE (NEG); NITRITE,URINE NEGATIVE (NEG); PROTEIN,URINE NEGATIVE (NEG-TRACE); UROBILINOGEN,URINE 0.2 mg/dL (0.2 mg/dL)
[2016-12-28 18:32] LABS: BACTERIA,URINE 0 /HPF (0-FEW); RBC,URINE 0 /HPF (0-2); SQUAMOUS EPITHELIAL CELL,UR FEW /LPF; WBC,URINE 0 /HPF (0-4)
[2016-12-28 18:33] LABS: BARBITURATES NEG (NEG); BENZODIAZEPINES NEG (NEG); CANNABINOIDS POS (NEG); COCAINE NEG (NEG); METHADONE NEG (NEG); OPIATES NEG (NEG); PHENCYCLIDINE NEG (NEG)
[2016-12-28 18:36] LABS: CREATININE 1.1 mg/dL (0.7-1.3); GFR 76.2; POTASSIUM 3.4 mmol/L (3.5-5.1)
[2016-12-28 18:38] LABS: ALBUMIN 3.6 g/dL (3.4-5.0); DIRECT BILIRUBIN 0.1 mg/dL (0.0-0.2); TOTAL BILIRUBIN 0.3 mg/dL (0.2-1.0); TOTAL PROTEIN 6.5 g/dL (6.4-8.2)
[2016-12-28] MEDS ORDERED: MORPHINE SULFATE 4 MG/ML DISP.SYRIN. IV ONE (19:15)
--- NOTE | 2016-12-28 19:48 | RAD ---
LIMITED ABDOMINAL ULTRASOUND History: Right upper quadrant and epigastric pain. Comparison: CT abdomen pelvis October 13, 2016. Procedure: Transabdominal ultrasound images are obtained. Findings: Visualized pancreas is unremarkable. Liver is mildly increased in echogenicity. No focal hepatic masses are identified. The right hepatic lobe measures 17.2 cm in length. Gallbladder is partially contracted. No cholelithiasis or cholecystitis is identified. Common bile duct measures normally at 3 mm in diameter. Right kidney measures 9.4 cm in length. There is no evidence of stone or hydronephrosis. Visualized IVC demonstrates normal caliber. Impression: 1. Mildly echogenic liver, compatible fatty liver disease. 2. Otherwise, unremarkable right upper quadrant ultrasound. Bone Electronically signed by: Pete Call MD (12/28/2016 7:45 PM) [facility]
[2016-12-28] MEDS ORDERED: LIDO:MAALOX:DONNATAL 1:1:1 15 ML SINGLE DOSE SWSW ONE (20:30)
[2016-12-28] MEDS ORDERED: PANT20TA2 PO (20:46)
[2016-12-28] MEDS ORDERED: TRAM50TA PO (20:46)
[2016-12-28] MEDS ORDERED: POTA20TA82 PO (20:46)
[2016-12-28 21:03] VITALS: BP 131/92
== END 2016-12-28 21:15 | disposition home or self-care (01) ==
LOC: ER 17:10
DX: R10.11 Right upper quadrant pain (principal); I10 Essential (primary) hypertension; J45.909 Unspecified asthma, uncomplicated; F90.9 Attention-deficit hyperactivity disorder, unspecified type; F39 Unspecified mood [affective] disorder; Z90.49 Acquired absence of other specified parts of digestive tract
CPT/HCPCS: 36415; 76705; 80048; 80076; 80307; 81001; 82553; 83690; 84484; 85025; 96361; 96374; 96375; 99285; J2270; J2405; J7030; G0479

== ENCOUNTER 2017-02-10 16:08 | Emergency (ER) | payer MEDICARE, MEDICAID ==
[~2017-02-10 16:08] MED LIST changes: +PANT20TA2 PO; +POTA20TA82 PO; +TRAM50TA PO
[2017-02-10 16:20] VITALS: BP 136/81
[2017-02-10] MEDS ORDERED: Magic Mouthwash SWSP (16:49)
[2017-02-10] MEDS ORDERED: AZIT250T6 PO (16:49)
--- NOTE | 2017-02-10 16:49 | PHYS DOC ---
Past Medical History Past Medical History: Anxiety, Asthma, Hypertension, Other Additional Past Medical Histor: ADHD, mood disorder,PANIC ATTACKS Past Surgical History: Appendectomy, Other Additional Past Surgical Histo: herniax 2 with mesh Alcohol Use: Occasionally Drug Use: Marijuana Adult General Chief Complaint Chief Complaint: SORE THROAT HPI HPI Patient is a 36 year old male presents to the emergency department with a three -day history of sore throat. He states he's had upper respiratory symptoms. He has had a fever, but has not measured. He has no other complaints. Patient has been using NyQuil for relief of symptoms and symptom management Review of Systems Review of Systems Constitutional: Chills without measured fever Eyes: Denies change in visual acuity, redness, or eye pain [] HENT: Sore throat Respiratory: Cough without shortness of breath Cardiovascular: Denies chest pain GI: Denies abdominal pain, nausea, vomiting, bloody stools or diarrhea [] : Denies dysuria or hematuria [] Musculoskeletal: Denies back pain or joint pain [] Integument: Denies rash or skin lesions [] Neurologic: Denies headache, focal weakness or sensory changes [] Endocrine: Denies polyuria or polydipsia [] Allergies Allergies Allergies Coded Allergies Type Severity Reaction Last Updated Verified Penicillins Allergy Intermediate 07/25/15 Yes fluoxetine Allergy Intermediate 07/25/15 Yes promethazine Allergy Intermediate 07/25/15 Yes codeine Adverse Reaction Mild itching 07/25/15 Yes Physical Exam Physical Exam Constitutional: Well developed, well nourished, no acute distress, non-toxic appearance. [] HENT: Normocephalic, atraumatic, bilateral external ears normal, oropharynx moist, posterior pharynx erythematous, uvula midline, no oral exudates, nose normal. [] Eyes: PERRLA, EOMI, conjunctiva normal, no discharge. [] Neck: Normal range of motion, no tenderness, supple with anterior cervical lymphadenopathy, no stridor. [] Cardiovascular:Heart rate regular rhythm, no murmur [] Lungs & Thorax: Bilateral breath sounds clear to auscultation [] Abdomen: Bowel sounds normal, soft, no tenderness, no masses, no pulsatile masses. [] Skin: Warm, dry, no erythema, no rash. [] Back: No tenderness, no CVA tenderness. [] Extremities: No tenderness, no cyanosis, no clubbing, ROM intact, no edema. [] Neurologic: Alert and oriented X 3, normal motor function, normal sensory function, no focal deficits noted. [] Psychologic: Affect normal, judgement normal, mood normal. [] Current Patient Data Vital Signs Vital Signs Date Time Temp Pulse Resp B/P (MAP) Pulse Ox O2 Delivery O2 Flow Rate FiO2 02/10/17 16:20 98.2 103 20 94 Room Air 98.2 EKG EKG [] Radiology/Procedures Radiology/Procedures Rapid strep positive[] Course & Med Decision Making Course & Med Decision Making Pertinent Labs and Imaging studies reviewed. (See chart for details) [] Dragon Disclaimer Dragon Disclaimer This electronic medical record was generated, in whole or in part, using a voice recognition dictation system. Departure Departure Impression: Primary Impression: Strep pharyngitis Disposition: 01 HOME, SELF-CARE Condition: STABLE Referrals: NO PCP (PCP) [facility] Patient Instructions: Viral and Bacterial Pharyngitis Scripts [Magic Mouthwash] No Conflict Check 5 ML SWSP Q2HR Y for throat pain, #240 ML Prov: EBEN BOB APRN 02/10/17 Azithromycin (AZITHROMYCIN TABLET) 250 Mg Tablet 1 PKG PO UD, #6 TAB Take 2 tablets on day 1 and 1 tablet on days 2 through 5. Prov: EBEN BOB APRN 02/10/17 EBEN BOB APRN Feb 10, 2017 16:49
[2017-02-11 08:26] LABS: NEGATIVE OBC STREP NEG; POSITIVE OBC STREP POS
[2017-03-28] MEDS ORDERED: NAPR-683 PO (00:10)
== END 2017-02-10 16:55 | disposition home or self-care (01) ==
LOC: ER 16:08
DX: J02.0 Streptococcal pharyngitis (principal); J45.909 Unspecified asthma, uncomplicated; I10 Essential (primary) hypertension; F90.9 Attention-deficit hyperactivity disorder, unspecified type; F12.10 Cannabis abuse, uncomplicated; Z88.0 Allergy status to penicillin; Z88.8 Allergy status to other drugs, medicaments and biological substances; Z88.5 Allergy status to narcotic agent
CPT/HCPCS: 87880; 99283

== ENCOUNTER 2017-02-24 16:17 | Emergency (ER) | payer MEDICARE, MEDICAID ==
[~2017-02-24] VITALS: Ht 175.3 cm; Wt 99.8 kg
[~2017-02-24 16:17] MED LIST changes: +AZIT250T6 PO; +Magic Mouthwash SWSP
[2017-02-24 16:35] VITALS: BP 150/89
--- NOTE | 2017-02-24 16:41 | PHYS DOC ---
Past Medical History Past Medical History: Anxiety, Asthma, Hypertension, Other Additional Past Medical Histor: ADHD, mood disorder,PANIC ATTACKS Past Surgical History: Appendectomy, Other Additional Past Surgical Histo: herniax 2 with mesh Alcohol Use: Occasionally Drug Use: Marijuana Adult General Chief Complaint Chief Complaint: FOOT INJURY PAIN HPI HPI Patient is a 36 year old L presents to the emergency department with complaints of right fourth toe pain. Patient reports that 2 days ago he stubbed his toe on a door stop embedded in the floor. He states he's had pain since incident he is intermittently using ibuprofen without relief of discomfort. Has been able to transient extremity since incident. Review of Systems Review of Systems Constitutional: Denies fever or chills [] Eyes: Denies change in visual acuity, redness, or eye pain [] HENT: Denies nasal congestion or sore throat [] Respiratory: Denies cough or shortness of breath [] Cardiovascular: No additional information not addressed in HPI [] GI: Denies abdominal pain, nausea, vomiting, bloody stools or diarrhea [] : Denies dysuria or hematuria [] Musculoskeletal: Right fourth toe pain. Integument: Denies rash or skin lesions [] Neurologic: Denies headache, focal weakness or sensory changes [] Endocrine: Denies polyuria or polydipsia [] Allergies Allergies Allergies Coded Allergies Type Severity Reaction Last Updated Verified Penicillins Allergy Intermediate 07/25/15 Yes fluoxetine Allergy Intermediate 07/25/15 Yes promethazine Allergy Intermediate 07/25/15 Yes codeine Adverse Reaction Mild itching 07/25/15 Yes Physical Exam Physical Exam Constitutional: Well developed, well nourished, no acute distress, non-toxic appearance. [] Neck: Normal range of motion, no tenderness, supple, no stridor. [] Cardiovascular:Heart rate regular rhythm, no murmur [] Lungs & Thorax: Bilateral breath sounds clear to auscultation [] Extremities: right foot, 4th toe with swelling and ecchymosis, diffuse tenderness to palpate, NVI, remainder of foot exam unremarkable. Neurologic: Alert and oriented X 3, normal motor function, normal sensory function, no focal deficits noted. [] Psychologic: Affect normal, judgement normal, mood normal. [] Current Patient Data Vital Signs Vital Signs Date Time Temp Pulse Resp B/P (MAP) Pulse Ox O2 Delivery O2 Flow Rate FiO2 02/24/17 16:35 98.4 85 16 97 Room Air 98.4 EKG EKG [] Radiology/Procedures Radiology/Procedures Right foot x-ray: Fracture of the proximal phalanx, distal end.[] Course & Med Decision Making Course & Med Decision Making Pertinent Labs and Imaging studies reviewed. (See chart for details) []Third and fourth toes kyrie taped by nursing staff. Patient tolerated well. Neurovascular intact distal. Dragon Disclaimer Dragon Disclaimer This electronic medical record was generated, in whole or in part, using a voice recognition dictation system. Departure Departure Impression: Primary Impression: Toe fracture, right Disposition: HOME, SELF-CARE Condition: STABLE Referrals: NO PCP (PCP) [facility] Patient Instructions: RICE - Routine Care for Injuries, Toe Fracture Scripts Tramadol Hcl (TRAMADOL HCL) 50 Mg Tablet 50 MG PO Q6H Y for PAIN, #15 TAB 0 Refills Prov: EBEN BOB APRN 02/24/17 Problem Qualifiers Primary Impression: Toe fracture, right Encounter type: initial encounter Toe: lesser toe Fracture type: closed Phalanx: proximal Fracture alignment: nondisplaced Qualified Codes: S92.514A - Nondisplaced fracture of proximal phalanx of right lesser toe(s), initial encounter for closed fracture EBEN BOB APRN Feb 24, 2017 16:40
--- NOTE | 2017-02-24 17:16 | RAD ---
EXAM: Right foot 3 views. HISTORY: 4th digit pain after trauma. COMPARISON: None. FINDINGS: There is a subacute appearing fracture of the 4th proximal phalanx. There is some resorptive about the fracture line suggesting ongoing motion. 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 Other joint spaces and alignment are maintained. There is some ossification at the tenderness insertion at the base of the 5th metatarsal. IMPRESSION: 1. Subacute fracture of the 4th proximal phalanx with evidence of motion. Ongoing management is recommended.
[2017-02-24] MEDS ORDERED: TRAM50TA PO (17:21)
== END 2017-02-24 17:35 | disposition home or self-care (01) ==
LOC: ER 16:17
DX: S92.514A Nondisplaced fracture of proximal phalanx of right lesser toe(s), initial encounter for closed fracture (principal); I10 Essential (primary) hypertension; J45.909 Unspecified asthma, uncomplicated; F90.9 Attention-deficit hyperactivity disorder, unspecified type; Z88.0 Allergy status to penicillin; Z88.5 Allergy status to narcotic agent; Z88.8 Allergy status to other drugs, medicaments and biological substances; W22.8XXA Striking against or struck by other objects, initial encounter; Y93.89 Activity, other specified; Y99.8 Other external cause status; Y92.89 Other specified places as the place of occurrence of the external cause
CPT/HCPCS: 73630; 99284

== ENCOUNTER 2017-03-27 22:32 | Emergency (ER) | payer MEDICARE, MEDICAID ==
[~2017-03-27] VITALS: Ht 175.3 cm; Wt 99.8 kg
[2017-03-27] MEDS ORDERED: ONDANSETRON PF 4 MG/2 ML VIAL. IV ONE (23:00)
[2017-03-27] MEDS ORDERED: KETOROLAC 30 MG/ML INJ. IV ONE (23:00)
[2017-03-27] MEDS ORDERED: IV NORMAL SALINE 1000ML BAG 1,000 ML IV SCH (23:00)
[2017-03-27] MEDS ORDERED: 0.9 % SODIUM CHLORIDE 10 ML DISP.SYRIN. IV PRN (23:00)
[2017-03-27 23:03] LABS: BASO # 0.1 x10^3/uL (0.0-0.2); BASO % 1 % (0-3); EOS % 2 % (0-3); HEMOGLOBIN 14.8 g/dL (13.0-17.5); LYMPH # 2.5 x10^3/uL (1.0-4.8); LYMPH % 27 % (24-48); MEAN CORPUSCULAR HEMOGLOBIN 29 pg (25-35); MEAN CORPUSCULAR HGB CONC 33 g/dL (31-37); MEAN CORPUSCULAR VOLUME 88 fL (79-100); MONO % 8 % (0-9); NEUT % 62 % (31-73); PLATELET COUNT 236 x10^3/uL (140-400); RED BLOOD COUNT 5.11 x10^6/uL (4.30-5.70); RED CELL DISTRIBUTION WIDTH 14.1 % (11.5-14.5)
--- NOTE | 2017-03-27 23:03 | PHYS DOC ---
Past Medical History Past Medical History: Anxiety, Asthma, Hypertension, Other Additional Past Medical Histor: ADHD, mood disorder,PANIC ATTACKS Past Surgical History: Appendectomy, Other Additional Past Surgical Histo: hernia x 2 with mesh Smoking: Cigarettes Alcohol Use: Occasionally Drug Use: Marijuana Adult General Chief Complaint Chief Complaint: SYNCOPE HPI HPI Patient is a pleasant 36-year-old male with history of anxiety disorder and mood disorder as well as ADHD who suffered from about 15 episodes of diarrhea today and had a syncopal episode. Patient was previously homeless but is now going to school and receiving social security benefits in order to sustain his lifestyle who is been suffering from diarrhea today. He denies any abdominal pain, blood in his stool or fevers or chills. But at the top front stairs he felt lightheaded and collapsed. He said he did remember waking up at the bottom of the stair complaining of primarily of pain at the back of his head and in his mid back. He denies any focal neurologic deficits, nausea or vomiting, denies any neck pain, when he walked back up the stairs and stood the dizziness returned. He admits to feeling that he does not have much of an appetite, he denies any fevers, sick contacts or recent travel outside the country. Patient denies any recent antibiotics. Patient is resting comfortably not having any symptoms of chest pain at this time. He is brought in by POV by his mother after he described at the tip injury he sustained while at the apartment. Patient's main complaint at this point is back pain which is worse with range of motion he denies any prior sustain injury. Patient also lines of a mild headache over the occiput where he landed and hit his head suffering a small injury. He denies vision changes, numbness and tingling in his limbs or weakness. Review of Systems Review of Systems Constitutional: Denies fever or chills [] Eyes: Denies change in visual acuity, redness, or eye pain [] HENT: Denies nasal congestion or sore throat [] Respiratory: Denies cough or shortness of breath [] Cardiovascular: No additional information not addressed in HPI [] GI: Denies abdominal pain, nausea, vomiting, bloody stools or constipation but patient has had some 15 bouts of nonbloody nonmucoid stool today. : Denies dysuria or hematuria [] Musculoskeletal: Denies back pain or joint pain [] Integument: Denies rash or skin lesions [] Neurologic: He does describe a slight occipital headache after a fall from standing. Patient also describes some syncope and near-syncopal events with generalized weakness secondary to volume depletion. Endocrine: Denies polyuria or polydipsia [] All other systems were reviewed and found to be within normal limits, except as documented in this note. Current Medications Current Medications Current Medications Medications (Trade) Dose Ordered Sig/Ryan Start Time Stop Time Status Last Admin Dose Admin Hydromorphone HCl (Dilaudid) 1 mg 1X ONCE 03/28/17 00:00 03/28/17 00:01 DC Ketorolac Tromethamine (Toradol) 30 mg 1X ONCE 03/27/17 23:00 03/27/17 23:01 DC 03/27/17 23:05 30 MG Ondansetron HCl (Zofran) 4 mg 1X ONCE 03/27/17 23:00 03/27/17 23:01 DC 03/27/17 23:05 4 MG Sodium Chloride (Normal Saline Flush) 10 ml QSHIFT PRN 03/27/17 23:00 Allergies Allergies Allergies Coded Allergies Type Severity Reaction Last Updated Verified Penicillins Allergy Intermediate 07/25/15 Yes fluoxetine Allergy Intermediate 07/25/15 Yes promethazine Allergy Intermediate 07/25/15 Yes codeine Adverse Reaction Mild itching 07/25/15 Yes Physical Exam Physical Exam Constitutional: Well developed, well nourished, no acute distress, non-toxic appearance. he does seem somewhat anxious but appropriate HENT: Normocephalic, small contusion and pain over the occiput without evidence of skull fracture, step-offs or hematoma., bilateral external ears normal, oropharynx dry, no oral exudates, nose normal. TMs are clear bilaterally with no evidence of basal skull fracture []oropharynx demonstrated no bite wounds or broken teeth Eyes: PERRLA, EOMI, conjunctiva normal, no discharge. [] Neck: Normal range of motion, no tenderness, supple, no stridor. [] Cardiovascular:Heart rate regular rhythm, no murmur [] Lungs & Thorax: Bilateral breath sounds clear to auscultation [] Abdomen: Bowel sounds normal, soft, no tenderness, no masses, no pulsatile masses. [] Skin: Warm, dry, no erythema, no rash. [] Back: he has a midline tenderness to palpation over the thoracic spine between T8 and T10 no external guerra no signs of bruising or ecchymoses. Extremities: No bony point tenderness, no cyanosis, no clubbing, ROM intact, no edema. [] Neurologic: Alert and oriented X 3, normal motor function, normal sensory function, no focal deficits noted. Patient has normal strength to all extremities no numbness and tingling to light touch and proprioception. Patient has brisk capillary refill +2 warm dry skin with no evidence of contusions or abrasions.[] Psychologic: Affect normal, judgement normal, mood normal. [] Current Patient Data Vital Signs Vital Signs Date Time Temp Pulse Resp B/P (MAP) Pulse Ox O2 Delivery O2 Flow Rate FiO2 03/27/17 23:00 101 25 134/90 (105) 97 Room Air 03/27/17 22:42 98.2 98.2 Lab Values Laboratory Tests Test 03/27/17 22:50 03/27/17 22:51 White Blood Count 9.0 x10^3/uL (4.0-11.0) Red Blood Count 5.11 x10^6/uL (4.30-5.70) Hemoglobin 14.8 g/dL (13.0-17.5) Hematocrit 45.0 % (39.0-53.0) Mean Corpuscular Volume 88 fL (79-100) Mean Corpuscular Hemoglobin 29 pg (25-35) Mean Corpuscular Hemoglobin Concent 33 g/dL (31-37) Red Cell Distribution Width 14.1 % (11.5-14.5) Platelet Count 236 x10^3/uL (140-400) Neutrophils (%) (Auto) 62 % (31-73) Lymphocytes (%) (Auto) 27 % (24-48) Monocytes (%) (Auto) 8 % (0-9) Eosinophils (%) (Auto) 2 % (0-3) Basophils (%) (Auto) 1 % (0-3) Neutrophils # (Auto) 5.6 x10^3uL (1.8-7.7) Lymphocytes # (Auto) 2.5 x10^3/uL (1.0-4.8) Monocytes # (Auto) 0.7 x10^3/uL (0.0-1.1) Eosinophils # (Auto) 0.2 x10^3/uL (0.0-0.7) Basophils # (Auto) 0.1 x10^3/uL (0.0-0.2) Sodium Level 141 mmol/L (136-145) Potassium Level 3.9 mmol/L (3.5-5.1) Chloride Level 108 mmol/L (98-107) H Carbon Dioxide Level 24 mmol/L (21-32) Anion Gap 9 (6-14) Blood Urea Nitrogen 16 mg/dL (8-26) Creatinine 1.0 mg/dL (0.7-1.3) Estimated GFR (Cockcroft-Gault) 85.0 Glucose Level 135 mg/dL (70-99) H Calcium Level 8.7 mg/dL (8.5-10.1) Total Bilirubin 0.2 mg/dL (0.2-1.0) Direct Bilirubin < 0.1 mg/dL (0.0-0.2) Aspartate Amino Transferase (AST) 12 U/L (15-37) L Alanine Aminotransferase (ALT) 18 U/L (16-63) Alkaline Phosphatase 63 U/L (46-116) Creatine Kinase 66 U/L (39-308) Creatine Kinase MB (Mass) 0.5 ng/mL (0.0-3.6) Creatine Kinase MB Relative Index 0.8 % (0-4) Troponin I Quantitative < 0.017 ng/mL (0.000-0.055) Total Protein 6.8 g/dL (6.4-8.2) Albumin 3.7 g/dL (3.4-5.0) Lipase 110 U/L (73-393) Glucose (Fingerstick) 141 mg/dL (70-99) H Laboratory Tests 03/27/17 22:50 Laboratory Tests 03/27/17 22:50 EKG EKG []EKG reviewed by me read by me 10:44 PM 03/27/2017 to return a heart rate of 99 there is a P-wave every QRS normal sinus rhythm with a MD interval of 142 which is normal, QRS width which is normal at 100. Patient's QTc is 449 which is normal. Patient has a left anterior fascicular block noted patient with the QRS and the left axis deviation. Radiology/Procedures Radiology/Procedures [] Course & Med Decision Making Course & Med Decision Making Pertinent Labs and Imaging studies reviewed. (See chart for details) []He states that he fell down a flight of stairs although that his injury pattern does not bear out that fact. I believe patient if syncopized today because point patient secondary to diarrheal illness. He'll be given fluids antiemetics we will image his head to make sure that he did not sustain any intracranial hemorrhage or injury today we will also image his lumbar and T- spine given the location of the tenderness that was found on physical exam. Patient will have his CMP and CBC completed as well as a troponin and EKG Patient's lumbar and thoracic x-rays reviewed by me demonstrate no occult compression fracture that I can see on plain films. There is some mild scoliosis but no evidence of internal articular fracture. CMP and CBC unremarkable with a negative troponin negative EKG. Patient received fluids antiemetics and pain medications and is mildly improved with his symptoms. Patient tells me that their symptoms given during CC are improved. We reviewed labs and radiology reports with patient at the bedside. I concern is volume depletion secondary to diarrhea which she has not had any episodes here in the emergency department.My syncope differential includes but not limited to: Neurally mediated vasovagal syncope, situational syncope, cardiac sinus syncope , orthostatic hypertension, medications, psychiatric interventions, neurologic syncope, cardiogenic syncopal B, to include organic heart disease congestive heart failure, cardiac dysrhythmia, seizure disorder, stroke or transient ischemic attack, bradycardia dysrhythmias, tachycardia dysrhythmias, PT, V. fib V. fib, cardiac abnormalities like first degree secondary third-degree AV blocks , prolonged QT, hypertrophic Manuel myopathy, severe pulmonic stenosis, pulmonary arterial hypertension, atrial myxomas, aortic stenosis, valvular failure, alcohol consumption, adrenal insufficiency, drug effects from things like antidepressants, antihypertensive agents like beta blockers, vasodilators including calcium channel blockers and nitrates, autonomic insufficiency. Was considered when this patient arrived Impression: Vasovagal syncope, volume depletion, diarrhea lumbar spine sprain, thoracic spine sprain, Dragon Disclaimer Dragon Disclaimer This electronic medical record was generated, in whole or in part, using a voice recognition dictation system. Departure Departure Impression: Primary Impression: Syncope Additional Impressions: Thoracic back sprain Lumbar back pain Lumbar back sprain Diarrhea Disposition: HOME, SELF-CARE Condition: IMPROVED Referrals: NO PCP (PCP) Patient Instructions: Diarrhea, Low Back Strain with Rehab-SportsMed, Syncope Additional Instructions: discharge: I've spoken with the patient and/or caregivers. I've explained the patient's condition, diagnosis and treatment plan based on information available to me at this time. I've answered the patient's and/or caregivers questions and addressed any concerns. The patient and/or caregivers have a good understanding the patient's diagnosis, condition and treatment plan as can be expected at this point. Vital signs have been stabilized. The patient's condition is stable for discharge from the emergency department. The patient will pursue further outpatient evaluation with her primary care provider or other designated consulting physician as outlined in the discharge instructions. Patient and/or caregivers are agreeable to this plan of care and follow-up instructions have been explained in detail. The patient and/or caregivers have received these instructions in written format and expressed understanding of these discharge instructions. The patient and her caregivers are aware that if any significant change in condition or worsening of symptoms should prompt him to immediately return to this of the closest emergency department. If an emergent department is not readily available I would encourage him to call 911. Although there is no acute fracture noted on x-ray today this does not mean subtle fractures are not missed on initial presentation. If your symptoms are not improved within 1 week or if symptoms worsen despite oral treatment with pain medications I would advise follow-up with your primary care doctor to have a repeat set of x-rays completed to ensure no subtle fractures were missed. Please understand that sometimes x-rays are missed red and if there is a misreading of your x-rays she will be contacted by the emergency room physician to talk about appropriate treatment. Scripts Methocarbamol (ROBAXIN) 500 Mg Tablet 1 TAB PO BID, #30 TAB Prov: RADHA MCINTOSH MD 03/28/17 Naproxen (NAPROSYN) 500 Mg Tablet 1 TAB PO BID, #14 TAB 1 Refill Prov: RADHA MCINTOSH MD 03/28/17 Diphenoxylate Hcl/Atropine (LOMOTIL TABLET) 1 Each Tablet 1 TAB PO QID, #20 TAB Prov: RADHA MCINTOSH MD 03/28/17 Problem Qualifiers RADHA MCINTOSH MD Mar 27, 2017 23:03
[2017-03-27 23:19] LABS: ANION GAP 9 (6-14); BLOOD UREA NITROGEN 16 mg/dL (8-26); CALCIUM 8.7 mg/dL (8.5-10.1); CARBON DIOXIDE 24 mmol/L (21-32); CHLORIDE 108 mmol/L (98-107); GLUCOSE 135 mg/dL (70-99); POTASSIUM 3.9 mmol/L (3.5-5.1); SODIUM 141 mmol/L (136-145)
[2017-03-27 23:25] LABS: ALBUMIN 3.7 g/dL (3.4-5.0); ALK PHOS 63 U/L (46-116); ALT (SGPT) 18 U/L (16-63); AST (SGOT) 12 U/L (15-37); DIRECT BILIRUBIN < 0.1 mg/dL (0.0-0.2); TOTAL BILIRUBIN 0.2 mg/dL (0.2-1.0); TOTAL PROTEIN 6.8 g/dL (6.4-8.2)
[2017-03-27 23:33] LABS: CKMB MASS 0.5 ng/mL (0.0-3.6)
--- NOTE | 2017-03-27 23:36 | RAD ---
CT head without contrast: Reason for examination: Fell with head pain. Axial images were obtained through the brain. No contrast was administered. Exposure: One or more of the following individualized dose reduction techniques were utilized for this examination: 1. Automated exposure control 2. Adjustment of the mA and/or kV according to patient size 3. Use of iterative reconstruction technique. Ventricular systems are symmetric and not abnormally dilated. No midline shift is seen. There is no evidence of intracranial hemorrhage, infarct, mass or contusion. No abnormalities are seen at the orbits. The paranasal sinuses and mastoid air cells are clear. No acute abnormality is seen in the skull. IMPRESSION: No acute intracranial abnormality evident. Electronically signed by: Jasmyn Clancy MD (03/27/2017 11:33 PM) [facility]
[2017-03-28] MEDS ORDERED: HYDROmorphone 2 MG/ML VIAL IV ONE
[2017-03-28] MEDS ORDERED: NAPR500T PO (00:10)
[2017-03-28] MEDS ORDERED: DIPH1TAB PO (00:10)
[2017-03-28] MEDS ORDERED: METH-37 PO (00:10)
[2017-03-28 00:15] VITALS: BP 116/58
--- NOTE | 2017-03-28 06:08 | EKG ---
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
--- NOTE | 2017-03-28 08:28 | RAD ---
EXAM: 1. Thoracic spine 3 views. 2. Lumbar spine 3 views. HISTORY: Fall with back pain. COMPARISON: None. FINDINGS: There is a mild lower thoracic levocurvature. Mild wedging of a lower thoracic vertebral body is most likely developmental. No clear thoracic fractures are seen. There is mild degenerative disc disease within the mid thoracic spine. Lumbar alignment is maintained. Lumbar vertebral body heights are maintained, and no fractures are identified. Intervertebral disc heights are maintained. Postoperative changes are seen at the hiatus. IMPRESSION: 1. Mild wedging of one lower thoracic vertebral body is most likely developmental. No clear fractures. MRI is more sensitive if there is persistent concern. 2. Mild mid thoracic degenerative disc disease. MTDD
== END 2017-03-28 00:35 | disposition home or self-care (01) ==
LOC: ER 22:32
DX: S23.3XXA Sprain of ligaments of thoracic spine, initial encounter (principal); S33.5XXA Sprain of ligaments of lumbar spine, initial encounter; S00.03XA Contusion of scalp, initial encounter; R55 Syncope and collapse; R19.7 Diarrhea, unspecified; E86.9 Volume depletion, unspecified; F41.0 Panic disorder [episodic paroxysmal anxiety]; J45.909 Unspecified asthma, uncomplicated; I10 Essential (primary) hypertension; F90.9 Attention-deficit hyperactivity disorder, unspecified type; F17.210 Nicotine dependence, cigarettes, uncomplicated; F12.10 Cannabis abuse, uncomplicated; Z88.0 Allergy status to penicillin; Z88.5 Allergy status to narcotic agent; Z88.8 Allergy status to other drugs, medicaments and biological substances; W10.9XXA Fall (on) (from) unspecified stairs and steps, initial encounter; Y93.89 Activity, other specified; Y92.89 Other specified places as the place of occurrence of the external cause; Y99.8 Other external cause status
CPT/HCPCS: 36415; 70450; 72072; 72100; 80048; 80076; 82553; 82962; 83690; 84484; 85025; 93005; 96361; 96374; 96375; 99285; J1170; J1885; J2405; J7030

== ENCOUNTER 2017-05-29 20:21 | Emergency (ER) | payer MEDICARE, MEDICAID ==
[2017-05-29] MEDS: HYDROcodone/APAP 5/325MG 1 TAB TABLET PO (20:43)
== END 2017-05-29 21:08 | disposition home or self-care (01) ==
LOC: ER 20:21
DX: M25.562 Pain in left knee (principal); F90.9 Attention-deficit hyperactivity disorder, unspecified type; I10 Essential (primary) hypertension; J45.909 Unspecified asthma, uncomplicated; F12.10 Cannabis abuse, uncomplicated; Z88.0 Allergy status to penicillin; Z88.5 Allergy status to narcotic agent; Z88.8 Allergy status to other drugs, medicaments and biological substances; X50.9XXA Other and unspecified overexertion or strenuous movements or postures, initial encounter; Y93.89 Activity, other specified; Y99.8 Other external cause status; Y92.89 Other specified places as the place of occurrence of the external cause
CPT/HCPCS: 29505; 99283-25

== ENCOUNTER 2017-05-30 16:32 | Emergency (ER) | payer MEDICARE, MEDICAID | END 2017-05-30 17:40 | disposition home or self-care (01) | LOC: ER 17:40 | DX: M25.561 Pain in right knee (principal); J45.909 Unspecified asthma, uncomplicated; I10 Essential (primary) hypertension; F31.9 Bipolar disorder, unspecified; F90.9 Attention-deficit hyperactivity disorder, unspecified type; F12.10 Cannabis abuse, uncomplicated | CPT/HCPCS: 99283 ==

== ENCOUNTER 2018-02-03 10:46 | Emergency (ER) | payer MEDICAID, MEDICARE ==
[~2018-02-03] VITALS: Ht 172.7 cm; Wt 90.7 kg
[~2018-02-03 10:46] MED LIST changes: +DIPH1TAB PO; +HYDR-971 PO; +METH-37 PO; +NAPR-683 PO; +OMEP20CA9 PO
[2018-02-03] MEDS ORDERED: ONDANSETRON PF 4 MG/2 ML VIAL. IV ONE (11:15)
[2018-02-03 11:28] LABS: BASO % 1 % (0-3); EOS # 0.2 x10^3/uL (0.0-0.7); EOS % 2 % (0-3); HEMATOCRIT 41.2 % (39.0-53.0); HEMOGLOBIN 13.9 g/dL (13.0-17.5); LYMPH # 1.5 x10^3/uL (1.0-4.8); LYMPH % 19 % (24-48); MEAN CORPUSCULAR HEMOGLOBIN 29 pg (25-35); MEAN CORPUSCULAR HGB CONC 34 g/dL (31-37); MEAN CORPUSCULAR VOLUME 86 fL (79-100); MONO # 0.5 x10^3/uL (0.0-1.1); MONO % 6 % (0-9); NEUT # 5.9 x10^3uL (1.8-7.7); NEUT % 73 % (31-73); PLATELET COUNT 222 x10^3/uL (140-400); RED BLOOD COUNT 4.79 x10^6/uL (4.30-5.70); RED CELL DISTRIBUTION WIDTH 14.2 % (11.5-14.5); WHITE BLOOD COUNT 8.1 x10^3/uL (4.0-11.0)
--- NOTE | 2018-02-03 11:33 | EKG ---
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
--- NOTE | 2018-02-03 11:49 | RAD ---
EXAM: CHEST 1 VIEW History: Chest pain COMPARISON: 09/15/2016 TECHNIQUE: Single portable radiograph of the chest FINDINGS: The cardiac silhouette is unremarkable. Minimal bibasilar lung atelectasis or infiltrates. The costophrenic sulci are clear and well demarcated. IMPRESSION: Minimal bibasilar lung atelectasis or infiltrates. Electronically signed by: Jaime Sarah MD (02/03/2018 11:45 AM) [id number]
[2018-02-03 11:52] LABS: CALCIUM 8.8 mg/dL (8.5-10.1); CREATININE 0.9 mg/dL (0.7-1.3); GFR 95.5; POTASSIUM 4.2 mmol/L (3.5-5.1)
--- NOTE | 2018-02-03 11:54 | PHYS DOC ---
Past Medical History Past Medical History: Anxiety, Asthma, Bipolar, Hypertension, Other Additional Past Medical Histor: ADHD, mood disorder,PANIC ATTACKS Past Surgical History: Appendectomy, Other Additional Past Surgical Histo: hernia x 2 with mesh Alcohol Use: Occasionally Drug Use: Marijuana Adult General Chief Complaint Chief Complaint: CHEST PAIN HPI HPI Patient is a 37 year old with history of bipolar, anxiety and asthma who presents with syncopal episode prior to ED arrival. Patient states he was sitting on his couch in the living room when he stood up he fell had a syncopal episode and landed across coffee table. Reports only minor chest wall pain. Denies hitting his head him a headache, neck pain, bowel or bladder incontinence. Patient reports feeling anxious and dizzy since the fall. Reports evidence in left chest and into left arm. No nausea vomiting or sweats. No history of CAD. Tympanic episodes but has never had chest heaviness or numbness in left hand. No leg pain or swelling. No history of DVT or PE. No new medications or missed medications. No other acute symptoms or complaints. [] Review of Systems Review of Systems ROS as per HPI All other systems were reviewed and found to be within normal limits, except as documented in this note. Current Medications Current Medications Current Medications Medications (Trade) Dose Ordered Sig/Ryan Start Time Stop Time Status Last Admin Dose Admin Acetaminophen/ Hydrocodone Bitart (Lortab 10/325) 1 tab 1X ONCE 02/03/18 14:00 02/03/18 14:01 UNV Info (CONTRAST GIVEN -- Rx MONITORING) 1 each PRN DAILY PRN 02/03/18 13:30 02/05/18 13:29 Iohexol (Omnipaque 300 Mg/ml) 75 ml 1X ONCE 02/03/18 13:30 02/03/18 13:31 DC 02/03/18 13:39 75 ML Lorazepam (Ativan) 1 mg 1X ONCE 02/03/18 11:15 02/03/18 11:17 DC 02/03/18 11:33 1 MG Ondansetron HCl (Zofran) 4 mg 1X ONCE 02/03/18 11:15 02/03/18 11:17 DC 02/03/18 11:32 4 MG Allergies Allergies Allergies Coded Allergies Type Severity Reaction Last Updated Verified Penicillins Allergy Intermediate 07/25/15 Yes fluoxetine Allergy Intermediate 3/18/16 Yes promethazine Allergy Intermediate 07/25/15 Yes codeine Adverse Reaction Mild itching 07/25/15 Yes Physical Exam Physical Exam Constitutional: Well developed, well nourished, no acute distress, non-toxic appearance. [] HENT: Normocephalic, atraumatic, bilateral external ears normal, oropharynx moist, no oral exudates, nose normal. [] Eyes: PERRLA, EOMI, conjunctiva normal. [] Neck: Normal range of motion. [] Cardiovascular:Heart rate regular rhythm, no murmur [] Lungs & Thorax: Bilateral breath sounds clear to auscultation [] Abdomen: Bowel sounds normal, soft, no tenderness. [] Skin: Warm, dry, no erythema, no rash. [] Back: No tenderness. [] Extremities: No tenderness. [] Neurologic: Alert and oriented X 3, normal motor function, normal sensory function, no focal deficits noted. [] Psychologic: Affect normal, judgement normal, mood normal. [] Current Patient Data Vital Signs Vital Signs Date Time Temp Pulse Resp B/P (MAP) Pulse Ox O2 Delivery O2 Flow Rate FiO2 02/03/18 13:53 82 17 148/70 (96) 98 02/03/18 12:59 98.2 Room Air 98.2 Lab Values Laboratory Tests Test 02/03/18 10:59 White Blood Count 8.1 x10^3/uL (4.0-11.0) Red Blood Count 4.79 x10^6/uL (4.30-5.70) Hemoglobin 13.9 g/dL (13.0-17.5) Hematocrit 41.2 % (39.0-53.0) Mean Corpuscular Volume 86 fL (79-100) Mean Corpuscular Hemoglobin 29 pg (25-35) Mean Corpuscular Hemoglobin Concent 34 g/dL (31-37) Red Cell Distribution Width 14.2 % (11.5-14.5) Platelet Count 222 x10^3/uL (140-400) Neutrophils (%) (Auto) 73 % (31-73) Lymphocytes (%) (Auto) 19 % (24-48) L Monocytes (%) (Auto) 6 % (0-9) Eosinophils (%) (Auto) 2 % (0-3) Basophils (%) (Auto) 1 % (0-3) Neutrophils # (Auto) 5.9 x10^3uL (1.8-7.7) Lymphocytes # (Auto) 1.5 x10^3/uL (1.0-4.8) Monocytes # (Auto) 0.5 x10^3/uL (0.0-1.1) Eosinophils # (Auto) 0.2 x10^3/uL (0.0-0.7) Basophils # (Auto) 0.0 x10^3/uL (0.0-0.2) D-Dimer (Lucia) 0.55 ug/mlFEU (0.00-0.50) H Sodium Level 144 mmol/L (136-145) Potassium Level 4.2 mmol/L (3.5-5.1) Chloride Level 107 mmol/L (98-107) Carbon Dioxide Level 26 mmol/L (21-32) Anion Gap 11 (6-14) Blood Urea Nitrogen 16 mg/dL (8-26) Creatinine 0.9 mg/dL (0.7-1.3) Estimated GFR (Cockcroft-Gault) 95.5 BUN/Creatinine Ratio 18 (6-20) Glucose Level 150 mg/dL (70-99) H Calcium Level 8.8 mg/dL (8.5-10.1) Total Bilirubin 0.1 mg/dL (0.2-1.0) L Aspartate Amino Transferase (AST) 15 U/L (15-37) Alanine Aminotransferase (ALT) 18 U/L (16-63) Alkaline Phosphatase 67 U/L (46-116) Troponin I Quantitative < 0.017 ng/mL (0.000-0.055) Total Protein 6.9 g/dL (6.4-8.2) Albumin 3.6 g/dL (3.4-5.0) Albumin/Globulin Ratio 1.1 (1.0-1.7) Laboratory Tests 02/03/18 10:59 Laboratory Tests 02/03/18 10:59 EKG EKG [EKG: reviewed] Radiology/Procedures Radiology/Procedures [X-ray/CTA chest: Reviewed] Course & Med Decision Making Course & Med Decision Making Pertinent Labs and Imaging studies reviewed. (See chart for details) [Unclear orthostatic syncope with mild chest wall injury and increasing anxiety stay in the emergency department. Lab work, CT urogram on recommend remarkable. No ectopy or arrhythmia on EKG or monitor. Symptoms improved with treatment. Recommend supportive care with close PCP follow-up. Return precautions reviewed. ] Anoop Disclaimer Anoop Disclaimer This electronic medical record was generated, in whole or in part, using a voice recognition dictation system. Departure Departure Impression: Primary Impression: Syncope Additional Impression: Chest pain Disposition: 02 TRANSFER S[facility]-TRM HOSP Condition: GOOD Referrals: NO PCP (PCP) Patient Instructions: Anxiety and Panic Attacks, [id number], Chest Pain ( Nonspecific), [id number] Additional Instructions: Please increase fluids and be careful when transitioning from a sitting to standing position she had risk of increase of fall. Continue home anxiety medications and take Tylenol as needed for chest wall pain. Follow-up with your PCP early next week if symptoms persist. Return to the ED if new or worsening symptoms. Problem Qualifiers MIKI FARIAS DO Feb 03, 2018 11:54
[2018-02-03 12:07] LABS: ALBUMIN 3.6 g/dL (3.4-5.0); ALBUMIN/GLOBULIN RATIO 1.1 (1.0-1.7); TOTAL BILIRUBIN 0.1 mg/dL (0.2-1.0); TOTAL PROTEIN 6.9 g/dL (6.4-8.2)
[2018-02-03] MEDS ORDERED: CONTRAST GIVEN. MC PRN (13:30)
[2018-02-03] MEDS ORDERED: IOHEXOL 300 MG/ML 100ML VIAL. IV ONE (13:30)
[2018-02-03 13:53] VITALS: BP 148/70
--- NOTE | 2018-02-03 13:59 | RAD ---
Examination: CT angiography chest HISTORY: History of chest pain, elevated d-dimer COMPARISON: None available TECHNIQUE: Axial CT angiographic images of the chest were performed with IV contrast. Coronal and sagittal 3-D MIP reformats are performed Exposure: One or more of the following individualized dose reduction techniques were utilized for this examination: 1. Automated exposure control 2. Adjustment of the mA and/or kV according to patient size 3. Use of iterative reconstruction technique FINDINGS: The central airways are patent. The heart size grossly appears unremarkable. The caliber of the aorta grossly appears unremarkable. There is no evidence of obvious filling defect identified in the main pulmonary arterial trunk and right and left main pulmonary arteries however evaluation is limited due to lack of significant contrast within. The evaluation of the distal lobar, segmental branches of the pulmonary arteries is limited as there is not enough contrast within these branches. Mild patchy airspace opacities identified in the bibasilar lungs could be atelectasis or infiltrates. No evidence of pleural effusion or pneumothorax. The visualized liver, spleen, adrenals grossly appears unremarkable. Small hiatal hernia. Mild degenerative changes thoracic spine. IMPRESSION: 1. Nondiagnostic exam for pulmonary embolism as evaluation of the main pulmonary artery and its branches is limited due to lack of significant contrast within. 2. Faint groundglass patchy airspace opacities identified in the bibasilar lungs likely atelectasis or infiltrates. Electronically signed by: Jaime Sarah MD (02/03/2018 1:55 PM) [id number]
[2018-02-03] MEDS ORDERED: HYDROcodone/APAP 10/325 1 TAB TABLET PO ONE (14:00)
== END 2018-02-03 14:13 | disposition home or self-care (01) ==
LOC: ER 10:46
DX: R55 Syncope and collapse (principal); R07.89 Other chest pain; F31.9 Bipolar disorder, unspecified; F41.9 Anxiety disorder, unspecified; J45.909 Unspecified asthma, uncomplicated; I10 Essential (primary) hypertension; F90.9 Attention-deficit hyperactivity disorder, unspecified type; Z90.89 Acquired absence of other organs; Z98.890 Other specified postprocedural states; Z88.0 Allergy status to penicillin; Z88.5 Allergy status to narcotic agent; Z88.8 Allergy status to other drugs, medicaments and biological substances
CPT/HCPCS: 36415; 71045; 71275; 80053; 84484; 85025; 85379; 93005; 96374; 96375; 99285; J2060; J2405; Q9967

== ENCOUNTER 2018-02-04 13:32 | Emergency (ER) | payer MEDICARE ==
[~2018-02-04] VITALS: Ht 172.7 cm; Wt 99.8 kg
[2018-02-04 14:08] LABS: BASO % 0 % (0-3); EOS # 0.2 x10^3/uL (0.0-0.7); EOS % 2 % (0-3); HEMATOCRIT 42.4 % (39.0-53.0); HEMOGLOBIN 14.7 g/dL (13.0-17.5); LYMPH # 1.7 x10^3/uL (1.0-4.8); LYMPH % 18 % (24-48); MEAN CORPUSCULAR HEMOGLOBIN 30 pg (25-35); MEAN CORPUSCULAR HGB CONC 35 g/dL (31-37); MEAN CORPUSCULAR VOLUME 87 fL (79-100); MONO # 0.5 x10^3/uL (0.0-1.1); MONO % 6 % (0-9); NEUT # 7.1 x10^3uL (1.8-7.7); NEUT % 74 % (31-73); PLATELET COUNT 231 x10^3/uL (140-400); RED BLOOD COUNT 4.89 x10^6/uL (4.30-5.70); RED CELL DISTRIBUTION WIDTH 14.1 % (11.5-14.5); WHITE BLOOD COUNT 9.6 x10^3/uL (4.0-11.0)
[2018-02-04 14:19] LABS: CALCIUM 8.5 mg/dL (8.5-10.1); GFR 84.5; POTASSIUM 3.8 mmol/L (3.5-5.1)
[2018-02-04 14:25] LABS: ALBUMIN 3.5 g/dL (3.4-5.0); ALBUMIN/GLOBULIN RATIO 1.1 (1.0-1.7); TOTAL BILIRUBIN 0.2 mg/dL (0.2-1.0); TOTAL PROTEIN 6.7 g/dL (6.4-8.2)
--- NOTE | 2018-02-04 14:25 | RAD ---
EXAM: CHEST 1 VIEW History: Shortness of breath, chest pain COMPARISON: 02/04/2018 TECHNIQUE: Single portable radiograph of the chest FINDINGS: The cardiac silhouette is unremarkable. The lungs are clear bilaterally. The costophrenic sulci are clear and well demarcated. IMPRESSION: No radiographic evidence of an acute cardiopulmonary process. Electronically signed by: Jaime Sarah MD (02/04/2018 2:22 PM) [facility]
[2018-02-04 14:26] LABS: BILIRUBIN,URINE NEGATIVE (NEG); CLARITY,URINE CLEAR; COLOR,URINE YELLOW; NITRITE,URINE NEGATIVE (NEG); PH,URINE 5.5; PROTEIN,URINE NEGATIVE (NEG-TRACE); UROBILINOGEN,URINE 0.2 mg/dL (0.2 mg/dL)
[2018-02-04 14:32] LABS: AMPHETAMINE/METHAMPHETAMINE NEG (NEG); BARBITURATES NEG (NEG); BENZODIAZEPINES POS (NEG); CANNABINOIDS POS (NEG); COCAINE NEG (NEG); METHADONE NEG (NEG); OPIATES POS (NEG); PHENCYCLIDINE NEG (NEG)
[2018-02-04 14:34] LABS: BACTERIA,URINE 0 /HPF (0-FEW); RBC,URINE 0 /HPF (0-2); SQUAMOUS EPITHELIAL CELL,UR OCC /LPF; WBC,URINE 0 /HPF (0-4)
--- NOTE | 2018-02-04 14:55 | EKG ---
[facility] [address] [place] [address] Test Date: 2018-02-04 Test Time: 13:44:06 Pat Name: KAILEE CRUZ Department: Room: Gender: M Car Dumper: : 1980 Requested By: TRISTIN LINK Order Number: [id number] Reading MD: Gilles Bower MD Measurements Intervals [place] Rate: 108 P: 11 GA: 140 QRS: -82 QRSD: 98 T: 49 QT: 320 QTc: 432 Interpretive Statements SINUS TACHYCARDIA LAFB NON-SPECIFIC ST/T CHANGES Electronically Signed On 02-06-2018 13:51:55 CDT by Gilles Bower MD
[2018-02-04 15:00] VITALS: BP 150/73
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
== END 2018-02-04 15:38 | disposition home or self-care (01) ==
LOC: ER 13:32
DX: R55 Syncope and collapse (principal); R42 Dizziness and giddiness; F41.9 Anxiety disorder, unspecified; R07.89 Other chest pain; J45.909 Unspecified asthma, uncomplicated; F90.9 Attention-deficit hyperactivity disorder, unspecified type; Z88.0 Allergy status to penicillin; Z88.5 Allergy status to narcotic agent; Z88.8 Allergy status to other drugs, medicaments and biological substances
CPT/HCPCS: 36415; 71045; 80053; 80307; 81001; 85025; 85379; 93005; 99285; G0480; G0479

== ENCOUNTER 2018-09-24 18:02 | Emergency (ER) | payer MEDICARE, MEDICAID ==
[~2018-09-24] VITALS: Ht 175.3 cm; Wt 99.8 kg
[~2018-09-24 18:02] MED LIST changes: +ALBU2.5V8 IH; +HYDR-3164 PO; -HYDR-971 PO; +OMEP20CA10 PO; -OMEP20CA9 PO; -PROVENTIL HFA6.7 GM IH
[2018-09-24] MEDS ORDERED: DEXAMETHASONE 4 MG TABLET PO ONE (18:15)
[2018-09-24] MEDS ORDERED: KETOROLAC 30 MG/ML VIAL. IM ONE (18:30)
[2018-09-24] MEDS ORDERED: IPRATRPIUM/ALBUTEROL 0.5/2.5MG 3 ML NEBU. NEB ONE (18:30)
[2018-09-24 18:35] VITALS: BP 165/79
[2018-09-24] MEDS ORDERED: ALBU2.5V8 INH (18:58)
[2018-09-24] MEDS ORDERED: BENZ100C PO (18:58)
[2018-09-24] MEDS ORDERED: AZIT250T PO (18:58)
[2018-09-24] MEDS ORDERED: PRED20TA PO (18:58)
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
[2018-09-24 19:26] LABS: INFLUENZA A PATIENT NEGATIVE (NEGATIVE); INFLUENZA B PATIENT NEGATIVE (NEGATIVE)
--- NOTE | 2018-09-25 14:52 | RAD ---
PA and lateral chest. HISTORY: Cough PA and lateral views were taken of the chest. Lungs are clear. Heart is normal in size without heart failure. There is no pleural effusion. IMPRESSION: 1. No acute chest disease. Electronically signed by: Christophe Serrano MD (09/25/2018 1:12 AM) [facility] MTDD
== END 2018-09-24 21:23 | disposition home or self-care (01) ==
LOC: ER 18:02
DX: J45.909 Unspecified asthma, uncomplicated (principal); R07.89 Other chest pain; R10.10 Upper abdominal pain, unspecified; R51 Headache; F90.9 Attention-deficit hyperactivity disorder, unspecified type; F39 Unspecified mood [affective] disorder; F17.210 Nicotine dependence, cigarettes, uncomplicated; Z88.0 Allergy status to penicillin; Z88.5 Allergy status to narcotic agent; Z88.8 Allergy status to other drugs, medicaments and biological substances
CPT/HCPCS: 71046; 87804; 94640; 96372; 99285; J1885; J7620; J8540

== ENCOUNTER 2018-10-05 10:44 | Emergency (ER) | payer MEDICAID, MEDICARE ==
[~2018-10-05] VITALS: Ht 175.3 cm; Wt 104.3 kg
[~2018-10-05 10:44] MED LIST changes: +ALBU2.5V8 INH; +AZIT250T PO; +BENZ100C PO
[2018-10-05] MEDS ORDERED: BACITRACIN TOPICAL OINT 14GM TUBE. TP STA (11:03)
[2018-10-05] MEDS ORDERED: KETOROLAC 60 MG/2 ML VIAL. IM ONE (11:15)
[2018-10-05] MEDS ORDERED: fentaNYL PF VIAL 100 MCG/2 ML VIAL IM ONE (11:15)
[2018-10-05] MEDS ORDERED: ONDANSETRON ODT 4 MG TAB.RAPDIS. PO ONE (11:15)
[2018-10-05 12:00] VITALS: BP 159/102
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
[2018-10-05] MEDS ORDERED: HYDROmorphone 2 MG/ML VIAL IM ONE (12:15)
[2018-10-05] MEDS ORDERED: diphenhydrAMINE HCL 25 MG CAPSULE PO ONE (12:15)
[2018-10-05] MEDS ORDERED: ONDA4TAB7 PO (12:20)
[2018-10-05] MEDS ORDERED: OXYC5CAP PO (12:20)
== END 2018-10-05 12:22 | disposition home or self-care (01) ==
LOC: ER 10:44
DX: T23.241A Burn of second degree of multiple right fingers (nail), including thumb, initial encounter (principal); T20.10XA Burn of first degree of head, face, and neck, unspecified site, initial encounter; J45.909 Unspecified asthma, uncomplicated; I25.2 Old myocardial infarction; Z88.0 Allergy status to penicillin; Z88.5 Allergy status to narcotic agent; Z88.8 Allergy status to other drugs, medicaments and biological substances; F31.9 Bipolar disorder, unspecified; X08.8XXA Exposure to other specified smoke, fire and flames, initial encounter; Y93.89 Activity, other specified; Y92.89 Other specified places as the place of occurrence of the external cause; Y99.8 Other external cause status
CPT/HCPCS: 96372; 99284; J1170; J1885; J3010; Q0163

== ENCOUNTER 2018-10-07 18:45 | Emergency (ER) | payer MEDICAID, MEDICARE ==
[~2018-10-07] VITALS: Ht 175.3 cm; Wt 104.3 kg
[~2018-10-07 18:45] MED LIST changes: +ONDA4TAB7 PO; +OXYC5CAP PO
[2018-10-07] MEDS ORDERED: CETIRIZINE HCL 10 MG TABLET. PO STA (19:09)
[2018-10-07] MEDS ORDERED: PRED50TA PO (19:12)
[2018-10-07] MEDS ORDERED: HYDR25TA PO (19:12)
--- NOTE | 2018-10-07 19:12 | PHYS DOC ---
Past Medical History Past Medical History: Asthma, [place] Additional Past Medical Histor: BIPOLAR, PANIC DISORDER, BACK PAIN, ATTENTION DEFICIT HYPERACTIVITY DISORDE (KATHERINE BLOUNT APRN) Additional Past Surgical Histo: hernia x 2 with mesh (KATHERINE BLOUNT APRN) Alcohol Use: None Drug Use: Marijuana (KATHERINE BLOUNT APRN) Adult General Chief Complaint Chief Complaint: ALLERGIC REACTION HPI HPI Patient is a 38 year old male who presents to the ED complaining of itching, patient states he was seen in the ED on , discharged on oxycodone. He states he is allergic to it, he states it's making him itch and is requesting another prescription for hydrocodone. (KATHERINE BLOUNT APRN) Review of Systems Review of Systems Constitutional: Denies fever or chills [] Eyes: Denies change in visual acuity, redness, or eye pain [] HENT: Denies nasal congestion or sore throat [] Respiratory: Denies cough or shortness of breath [] Cardiovascular: No additional information not addressed in HPI [] GI: Denies abdominal pain, nausea, vomiting, bloody stools or diarrhea [] : Denies dysuria or hematuria [] Musculoskeletal: Denies back pain or joint pain [] Integument: Reports itching reports burn to the right hand and face Neurologic: Denies headache, focal weakness or sensory changes [] All other systems were reviewed and found to be within normal limits, except as documented in this note. (KATHERINE BLOUNT APRN) Current Medications Current Medications Current Medications Medications (Trade) Dose Ordered Sig/Ryan Start Time Stop Time Status Last Admin Dose Admin Acetaminophen/ Hydrocodone Bitart (Lortab 5/325) 2 tab 1X ONCE 10/07/18 19:15 10/07/18 19:16 DC 10/07/18 19:28 2 TAB Cetirizine HCl (ZyrTEC) 10 mg 1X STAT 10/07/18 19:09 10/07/18 19:11 DC 10/07/18 19:32 10 MG Prednisone (Prednisone) 50 mg 1X ONCE 10/07/18 19:15 10/07/18 19:16 DC 10/07/18 19:31 50 MG (LILO HOLLOWAY DO) Allergies Allergies Allergies Coded Allergies Type Severity Reaction Last Updated Verified Penicillins Allergy Intermediate 3/18/16 Yes fluoxetine Allergy Intermediate 07/25/15 Yes promethazine Allergy Intermediate 07/25/15 Yes codeine Adverse Reaction Mild itching 07/25/15 Yes (LILO HOLLOWAY DO) Physical Exam Physical Exam Constitutional: Well developed, well nourished, no acute distress, non-toxic appearance. [] HENT: Normocephalic, atraumatic, bilateral external ears normal, oropharynx moist, no oral exudates, nose normal. [] Eyes: PERRLA, EOMI, conjunctiva normal, no discharge. [] Neck: Normal range of motion, no tenderness, supple, no stridor. [] Cardiovascular:Heart rate regular rhythm, no murmur [] Lungs & Thorax: Bilateral breath sounds clear to auscultation [] Abdomen: Bowel sounds normal, soft, no tenderness, no masses, no pulsatile masses. [] Skin: First degree gonzales noted on the right face, second-degree gonzales noted to the right hand. This were present when patient was seen on Back: No tenderness, no CVA tenderness. [] Extremities: No tenderness, no cyanosis, no clubbing, ROM intact, no edema. [] Neurologic: Alert and oriented X 3, normal motor function, normal sensory function, no focal deficits noted. [] Psychologic: Affect normal, judgement normal, mood normal. [] (KATHERINE BLOUNT APRN) Current Patient Data Vital Signs Vital Signs Date Time Temp Pulse Resp B/P (MAP) Pulse Ox O2 Delivery O2 Flow Rate FiO2 10/07/18 19:28 18 97 Room Air 10/07/18 19:20 98.8 78 160/85 (110) 98.8 (LILO HOLLOWAY DO) EKG EKG [] (KATHERINE BLOUNT APRN) Radiology/Procedures Radiology/Procedures [] (KATHERINE BLOUNT APRN) Course & Med Decision Making Course & Med Decision Making Pertinent Labs and Imaging studies reviewed. (See chart for details) This is a 38-year-old male patient presenting to the ED today requesting another prescription for pain medicine. Patient was seen on from gonzales on the face and the right hand, was put on oxycodone, he presents today stating it is making him itch and would like hydrocodone RX. Informed patient we can put him on prednisone and Benadryl or hydroxyzine. Informed him I can not switch his prescription he can take Tylenol or Motrin [id number], he has no rash or itching in the Ed. D/c with prednisone, and hydroxyzine. He has a f/u with [facility] on Tuesday. (KATHERINE BLOUNT APRN) Dragon Disclaimer Dragon Disclaimer This electronic medical record was generated, in whole or in part, using a voice recognition dictation system. (KATHERINE BLOUNT APRN) Departure Departure Impression: Primary Impression: Itching due to drug Additional Impressions: Second degree burn of hand First degree burn of face Disposition: HOME, SELF-CARE Condition: STABLE Referrals: NO PCP (PCP) Please follow up with as scheduled Patient Instructions: Itching-Brief Additional Instructions: You were evaluated in the emergency room for gonzales and itching. We put you on prednisone and hydroxyzine, take them as prescribed.Take ibuprofen as needed for pain. Scripts Hydroxyzine Hcl (HYDROXYZINE HCL) 25 Mg Tablet 1 TAB PO TID, #20 TAB Prov: KATHERINE BLOUNT APRN 10/07/18 Prednisone (PREDNISONE) 50 Mg Tablet 1 TAB PO DAILY, #5 TAB Prov: KATHERINE BLOUNT APRN 10/07/18 Attending Signature Attending Signature I have reviewed the PA/CONTRACT MODELER's note and plan of care. I was available for consultation as needed during the patient's visit in the emergency department. I agree with the clinical impression, plan, and disposition. (LILO HOLLOWAY DO) Problem Qualifiers Additional Impressions: Second degree burn of hand Encounter type: subsequent encounter Burn of hand location: multiple sites Laterality: right Qualified Codes: T23.201D - Burn of second degree of right hand, unspecified site, subsequent encounter First degree burn of face Encounter type: subsequent encounter Qualified Codes: T20.10XD - Burn of first degree of head, face, and neck, unspecified site, subsequent encounter KATHERINE BLOUNT APRN Oct 07, 2018 19:12 LILO HOLLOWAY DO Oct 10, 2018 06:29
[2018-10-07] MEDS ORDERED: predniSONE 10 MG TABLET PO ONE (19:15)
[2018-10-07] MEDS ORDERED: HYDROcodone/APAP 5/325MG 1 TAB TABLET PO ONE (19:15)
[2018-10-07 19:20] VITALS: BP 160/85
== END 2018-10-07 19:35 | disposition home or self-care (01) ==
LOC: ER 18:45
DX: L29.9 Pruritus, unspecified (principal); T40.2X5A Adverse effect of other opioids, initial encounter; J45.909 Unspecified asthma, uncomplicated; F31.9 Bipolar disorder, unspecified; F90.9 Attention-deficit hyperactivity disorder, unspecified type; I25.2 Old myocardial infarction; Z88.0 Allergy status to penicillin; Z88.5 Allergy status to narcotic agent; Z88.8 Allergy status to other drugs, medicaments and biological substances; Y92.89 Other specified places as the place of occurrence of the external cause
CPT/HCPCS: 99284; J7512

== ENCOUNTER 2019-10-30 14:14 | Emergency (ER) | payer MEDICARE, OTHER ==
[~2019-10-30] VITALS: Ht 175.3 cm; Wt 109.0 kg
[~2019-10-30 14:14] MED LIST changes: -ALBU2.5V8 IH; +HYDR25TA PO; -OMEP20CA10 PO; +OMEP20CA16 PO; +POTA20TA4 PO; -POTA20TA82 PO; +PRED50TA PO; +PROVENTIL HFA6.7 GM IH
[2019-10-30 14:50] VITALS: BP 148/94
[2019-10-30] MEDS ORDERED: TRAM50TA PO (15:05)
[2019-10-30] MEDS ORDERED: CLIN300C8 PO (15:05)
--- NOTE | 2019-10-30 15:06 | PHYS DOC ---
Past Medical History Past Medical History: Asthma, [place] Additional Past Medical Histor: BIPOLAR, PANIC DISORDER, BACK PAIN, ATTENTION DEFICIT HYPERACTIVITY DISORDE Past Surgical History: No Surgical History Additional Past Surgical Histo: hernia x 2 with mesh Smoking Status: Current Every Day Smoker Alcohol Use: None Drug Use: Marijuana General Adult EDM: Chief Complaint: DENTAL PROBLEM HPI: HPI: Patient is a 39 year old male who presents with 3 days ago his upper partial broke and now he is feeling a lot of pain in his upper gum line and pressure. he is missing his top front 4 teeth and gum line is tender. He rates his pain a 10/10. He states that he is needing a dentist. Patient is given a list of dentists. He states that also out of his albuterol inhaler would like a refill. Review of Systems: Review of Systems: HENT: Denies nasal congestion or sore throat. Dental pain. [] Heart Score: Risk Factors: Risk Factors: DM, Current or recent (<one month) smoker, HTN, HLP, family history of CAD, obesity. Risk Scores: Score 0 - 3: 2.5% MACE over next 6 weeks - Discharge Home Score 4 - 6: 20.3% MACE over next 6 weeks - Admit for Clinical Observation Score 7 - 10: 72.7% MACE over next 6 weeks - Early Invasive Strategies Allergies: Allergies: Allergies Coded Allergies Type Severity Reaction Last Updated Verified Penicillins Allergy Intermediate 07/25/15 Yes fluoxetine Allergy Intermediate 07/25/15 Yes promethazine Allergy Intermediate 07/25/15 Yes codeine Adverse Reaction Mild itching 07/25/15 Yes Physical Exam: PE: Constitutional: Well developed, well nourished, no acute distress, non-toxic appearance. [] HENT: Normocephalic, atraumatic, bilateral external ears normal, oropharynx moist, no oral exudates, nose normal. Dental pain. [] Eyes: PERRLA, EOMI, conjunctiva normal, no discharge. [] Neck: Normal range of motion, no tenderness, supple, no stridor. [] Cardiovascular:Heart rate regular rhythm, no murmur [] Lungs & Thorax: Bilateral breath sounds clear to auscultation [] Abdomen: Bowel sounds normal, soft, no tenderness, no masses, no pulsatile masses. [] Skin: Warm, dry, no erythema, no rash. [] Back: No tenderness, no CVA tenderness. [] Extremities: No tenderness, no cyanosis, no clubbing, ROM intact, no edema. [] Neurologic: Alert and oriented X 3, normal motor function, normal sensory function, no focal deficits noted. [] Psychologic: Affect normal, judgement normal, mood normal. [] EKG: EKG: [] Radiology/Procedures: Radiology/Procedures: [] Course & Med Decision Making: Course & Med Decision Making Pertinent Labs and Imaging studies reviewed. (See chart for details) See HPI. Afebrile. Patient states he still eating and drinking appropriately but is hard due to his missing teeth. Patient is given a sheet of dentist he can go to. I will also refill his albuterol inhaler. [] Dragon Disclaimer: Dragon Disclaimer: This electronic medical record was generated, in whole or in part, using a voice recognition dictation system. Departure Departure Impression: Primary Impression: Pain, dental Disposition: HOME, SELF-CARE Condition: STABLE Referrals: NO PCP (PCP) Patient Instructions: Dental Pain, [id number] Additional Instructions: Follow-up with adenosine as possible. Take medication as prescribed until it is finished. Do not drive or operate heavy machinery or drink alcohol while taking the pain medication. Scripts Albuterol Sulfate (PROAIR HFA INHALER) 8.5 Gm Hfa.aer.ad 1 PUFF INH PRN Q6HRS PRN for SHORTNESS OF BREATH, #1 INHALER 0 Refills Prov: ANDRE HILLIARD APRN 10/30/19 Tramadol Hcl (TRAMADOL HCL) 50 Mg Tablet 50 MG PO Q6HRS PRN for PAIN, #10 TAB Prov: ANDRE HILLIARD APRN 10/30/19 Clindamycin Hcl (CLINDAMYCIN HCL) 300 Mg Capsule 1 CAP PO TID, #21 CAP Prov: ANDRE HILLIARD APRN 10/30/19 Justicifation of Admission Dx: Justifications for Admission: Justification of Admission Dx: N/A ANDRE HILLIARD APRN Oct 30, 2019 15:06
[2019-10-30] MEDS ORDERED: ALBU2.5V8 INH (15:09)
== END 2019-10-30 15:11 | disposition home or self-care (01) ==
LOC: ER 14:14
DX: K08.89 Other specified disorders of teeth and supporting structures (principal); K06.8 Other specified disorders of gingiva and edentulous alveolar ridge; J45.909 Unspecified asthma, uncomplicated; I25.2 Old myocardial infarction; F31.9 Bipolar disorder, unspecified; F17.200 Nicotine dependence, unspecified, uncomplicated; F90.9 Attention-deficit hyperactivity disorder, unspecified type; Z88.0 Allergy status to penicillin; Z88.5 Allergy status to narcotic agent; Z88.8 Allergy status to other drugs, medicaments and biological substances
CPT/HCPCS: 99283

== ENCOUNTER 2020-01-06 16:22 | Emergency (ER) | payer MEDICARE, OTHER ==
[~2020-01-06] VITALS: Ht 175.3 cm; Wt 115.0 kg
[~2020-01-06 16:22] MED LIST changes: +CLIN300C8 PO
[2020-01-06] MEDS ORDERED: BUPIVACAINE MPF 0.25% 10 ML VIAL. IJ ONE (17:30)
[2020-01-06] MEDS ORDERED: traMADol 50 MG TABLET PO ONE (17:30)
[2020-01-06] MEDS ORDERED: KETOROLAC 60 MG/2 ML VIAL. IM ONE (17:30)
--- NOTE | 2020-01-06 17:35 | PHYS DOC ---
Past Medical History Past Medical History: Asthma, [place] Additional Past Medical Histor: BIPOLAR, PANIC DISORDER, BACK PAIN, ATTENTION DEFICIT HYPERACTIVITY DISORDE Past Surgical History: Appendectomy, Other Additional Past Surgical Histo: hernia x 2 with mesh Smoking Status: Current Every Day Smoker Alcohol Use: Occasionally Drug Use: Marijuana General Adult EDM: Chief Complaint: DENTAL PROBLEM HPI: HPI: Patient is a 39 year old male who presents with patient states for the last week he has had dental pain stating that " his whole mouth hurts". Patient states he is getting all of his teeth pulled on Tuesday. Patient states that he cannot sleep. He states he needs a medication. Patient is hypertensive and states he does not have a history of hypertension but he is in a lot of pain. I offered the patient a dental block and he is refusing a dental block. Patient has many missing teeth, dental caries and broken teeth. He is afebrile. Patient has a history of asthma, ADHD, bipolar, smoker, [place], appendectomy, hernia repair with mesh. Patient denies chest pain, headache, dizziness, shortness of breath, syncope, abdominal pain, nausea, vomiting, fever, facial swelling, numbness or tingling. Patient has asymtomatic hypertension. Review of Systems: Review of Systems: Constitutional: Denies fever or chills. [] Eyes: Denies change in visual acuity. [] HENT: Denies nasal congestion or sore throat. Dental pain. [] Respiratory: Denies cough or shortness of breath. [] Cardiovascular: Denies chest pain or edema. [] GI: Denies abdominal pain, nausea, vomiting, bloody stools or diarrhea. [] : Denies dysuria. [] Musculoskeletal: Denies back pain or joint pain. [] Integument: Denies rash. [] Neurologic: Denies headache, focal weakness or sensory changes. [] Endocrine: Denies polyuria or polydipsia. [] Lymphatic: Denies swollen glands. [] Psychiatric: Denies depression or anxiety. Manic. [] Heart Score: Risk Factors: Risk Factors: DM, Current or recent (<one month) smoker, HTN, HLP, family history of CAD, obesity. Risk Scores: Score 0 - 3: 2.5% MACE over next 6 weeks - Discharge Home Score 4 - 6: 20.3% MACE over next 6 weeks - Admit for Clinical Observation Score 7 - 10: 72.7% MACE over next 6 weeks - Early Invasive Strategies Current Medications: Current Medications Medications (Trade) Dose Ordered Sig/Ryan Start Time Stop Time Status Last Admin Dose Admin Bupivacaine HCl (Sensorcaine-Mpf 0.25%) 10 ml 1X ONCE 01/06/20 17:30 01/06/20 17:31 Tramadol HCl (Ultram) 50 mg 1X ONCE 01/06/20 17:30 01/06/20 17:31 Allergies: Allergies: Allergies Coded Allergies Type Severity Reaction Last Updated Verified Penicillins Allergy Intermediate hives 10/30/19 Yes fluoxetine Allergy Intermediate 07/25/15 Yes codeine Adverse Reaction Intermediate itching, hives 10/30/19 Yes promethazine Adverse Reaction Intermediate "jittery" 10/30/19 Yes Physical Exam: PE: Constitutional: Well developed, well nourished, no acute distress, non-toxic appearance. [] HENT: Normocephalic, atraumatic, bilateral external ears normal, oropharynx moist, no oral exudates, nose normal. Many missing teeth, broken teeth and dental caries [] Eyes: PERRLA, EOMI, conjunctiva normal, no discharge. [] Neck: Normal range of motion, no tenderness, supple, no stridor. [] Cardiovascular:Heart rate regular rhythm, no murmur [] Lungs & Thorax: Bilateral breath sounds clear to auscultation [] Abdomen: Bowel sounds normal, soft, no tenderness, no masses, no pulsatile masses. [] Skin: Warm, dry, no erythema, no rash. [] Back: No tenderness, no CVA tenderness. [] Extremities: No tenderness, no cyanosis, no clubbing, ROM intact, no edema. [] Neurologic: Alert and oriented X 3, normal motor function, normal sensory function, no focal deficits noted. [] Psychologic: Affect normal, judgement normal, mood normal. [] EKG: EKG: [] Radiology/Procedures: Radiology/Procedures: [] Course & Med Decision Making: Course & Med Decision Making Pertinent Labs and Imaging studies reviewed. (See chart for details) See HPI. No abscess is seen. There is no facial swelling. Patient speaks in full complete sentences. Patient has pressured speech and acts very anxious. Patient is acting very manic. Going to give the patient clindamycin antibiotic and a shot of IM Toradol. I have spoken to Dr. Brandt concerning this patient and patient findings and care plan. [] Anoop Disclaimer: Anoop Disclaimer: This electronic medical record was generated, in whole or in part, using a voice recognition dictation system. Departure Departure Impression: Primary Impression: Pain, dental Disposition: HOME, SELF-CARE Condition: STABLE Referrals: UNKNOWN PCP NAME (PCP) Patient Instructions: Dental Caries Additional Instructions: Follow-up with your dentist as scheduled on Tuesday. Call them tomorrow to get further pain medication. Scripts Lidocaine HCl (Lidocaine HCl Viscous) 15 Ml Solution 1 ML MM QID PRN for PAIN, #1 MISC swish and spit Prov: ANDRE HILLIARD APRN 01/06/20 Justicifation of Admission Dx: Justifications for Admission: Justification of Admission Dx: N/A ANDRE HILLIARD APRN Jan 06, 2020 17:35
[2020-01-06] MEDS ORDERED: LIDO20SO10 MM (17:38)
[2020-01-06 17:49] VITALS: BP 190/106
== END 2020-01-06 17:49 | disposition home or self-care (01) ==
LOC: ER 16:32
DX: K08.89 Other specified disorders of teeth and supporting structures (principal); J45.909 Unspecified asthma, uncomplicated; I25.2 Old myocardial infarction; F17.200 Nicotine dependence, unspecified, uncomplicated; F12.90 Cannabis use, unspecified, uncomplicated; F31.9 Bipolar disorder, unspecified; Z90.89 Acquired absence of other organs; Z98.890 Other specified postprocedural states; Z88.0 Allergy status to penicillin; Z88.5 Allergy status to narcotic agent; Z88.8 Allergy status to other drugs, medicaments and biological substances
CPT/HCPCS: 96372; 99283; J1885